=== PATIENT | female | born 1945 | race Caucasian/White ===

== ENCOUNTER 2023-12-21 21:28 | Inpatient (IN) | payer MEDICARE, BC ==
--- NOTE | 2023-12-21 22:13 | ED ---
Skin/Abscess/FB HPI - General Source: patient, family, RN notes reviewed Mode of arrival: wheelchair Limitations: no limitations <Leanna Gandhi - Last Filed: 12/23/23 13:06> <Olvin Fermin - Last Filed: 12/23/23 20:15> - General Chief complaint: Skin/Abscess/Foreign Body Stated complaint: Hernia Time Seen by Provider: 12/21/23 21:49 - History of Present Illness Initial comments: This is a 78-year-old female who presents to the emergency department for concerns of a hernia. States that she been dealing with a hernia in her left groin region for many years and usually pushes it back in multiple times a day. A few days ago she noticed a blood blister over that spot that just broke open. States that after it broke open she noticed that there seemed to be a hole in this area with foul stool smelling drainage. She has not yet seen any surgeons or had the hernia evaluated. The area since opening up is only mildly painful. Denies any fevers or chills. (Leanna Gandhi) - Related Data Home Medications Medication Instructions Recorded Confirmed Aspirin 325 mg PO Q4H PRN 12/22/23 12/22/23 Previous Rx's Medication Instructions Recorded Levofloxacin [Levaquin] 500 mg PO DAILY 10 Days #10 tab 12/23/23 Allergies Allergy/AdvReac Type Severity Reaction Status Date / Time No Known Allergies Allergy Verified 12/22/23 09:36 Review of Systems ROS Other: All systems not noted in ROS Statement are negative. <Leanna Gandhi - Last Filed: 12/23/23 13:06> ROS Other: All systems not noted in ROS Statement are negative. <Olvin Fermin - Last Filed: 12/23/23 20:15> ROS Statement: Those systems with pertinent positive or pertinent negative responses have been documented in the HPI. Past Medical History History of Any Multi-Drug Resistant Organisms: None Reported Past Psychological History: No Psychological Hx Reported Smoking Status: Never smoker Past Alcohol Use History: Occasional Past Drug Use History: None Reported <Leanna Gandhi - Last Filed: 12/23/23 13:06> General Exam Limitations: no limitations General appearance: alert, in no apparent distress Head exam: Present: atraumatic, normocephalic, normal inspection Respiratory exam: Present: normal lung sounds bilaterally. Absent: respiratory distress, wheezes, rales, rhonchi, stridor Cardiovascular Exam: Present: regular rate, normal rhythm, normal heart sounds. Absent: systolic murmur, diastolic murmur, rubs, gallop, clicks GI/Abdominal exam: Present: other (Open hole/defect in the left inguinal region with foul-smelling martinez/green drainage) Neurological exam: Present: alert, oriented X3, CN II-XII intact Psychiatric exam: Present: normal affect, normal mood <Leanna Gandhi - Last Filed: 12/23/23 13:06> Course Vital Signs 12/21/23 12/22/23 21:37 02:06 Temperature 97.9 F Pulse Rate 103 H 85 Respiratory 18 18 Rate Blood Pressure 137/78 128/69 O2 Sat by Pulse 98 98 Oximetry Medical Decision Making - Lab Data Result diagrams: 12/23/23 05:54 12/23/23 05:54 - Radiology Data Radiology results: report reviewed, image reviewed <Leanna Gandhi - Last Filed: 12/23/23 13:06> - Lab Data Result diagrams: 12/23/23 05:54 12/23/23 05:54 <Olvin Fermin - Last Filed: 12/23/23 20:15> - Medical Decision Making This is a 78 year old female who presents to the emergency department for an abdominal opening. Was pt. sent in by a medical professional or institution? @ -No Did you speak to anyone other than the patient for history? @ -No Did you review nursing and triage notes? @ -Yes, and I agree, it is accurate with regards to the patient's symptoms. Were old charts reviewed? @ -No Differential Diagnosis? @ -Enterocutaneous fistula, abscess, cellulitis, injury, this is not meant to be an all-inclusive list. EKG interpreted by me (3pts min.)? @ -Not obtained X-rays interpreted by me (1pt min.)? @ -Not obtained CT interpreted by me (1pt min.)? @ -CT scan of the abdomen and pelvis obtained. My interpretation identifies a large cystic structure in the pelvis. U/S interpreted by me (1pt. min.)? @ -Not obtained What testing was considered but not performed? (CT, X-rays, U/S, labs)? Why? @ -Pelvic ultrasound, however patient refused and did not want the ovarian cystic structure addressed. What meds were considered but not given? Why? @ -None Did you discuss the management of the patient with other professionals? @ -No Did you reconcile home meds? @ -No Was smoking cessation discussed for >3mins.? @ -No Was critical care preformed (if so, how long)? @ -No Were there social determinants of health that impacted care today? How? (Homelessness, low income, unemployed, alcoholism, drug addiction, transportation, low edu. Level, literacy, decrease access to med. care, longterm, rehab)? @ -No Was there de-escalation of care discussed even if they declined? (Discuss DNR or withdrawal of care, Hospice)? @ -No What co-morbidities impacted this encounter? (DM, HTN, Smoking, COPD, CAD, Cancer, CVA, Hep., AIDS, mental health diagnosis, sleep apnea, morbid obesity)? @ -Inguinal hernia Was patient admitted / discharged? @ -Admitted. Lab work demonstrate signs of dehydration and was otherwise unremarkable. There is no leukocytosis or elevated lactic acid. CT scan of the abdomen and pelvis demonstrates a 1.9 cm gas collection in the subcutaneous tissues of the left inguinal crease which extends down to and/or possibly contiguous with the loop of bowel within the left inguinal hernia. It is not clear if this is an abdominal wall abscess or related to an enterocutaneous fistula. The odor of the drainage was fairly potent and reminiscent of stool. She was started on Rocephin and Flagyl empirically. Blood cultures and cultures of the drainage were obtained. CT scan also noted an 18 cm cystic structure in the pelvis concerning for a cystic ovarian mass. This was reviewed with the patient who advised that she does not want this addressed while she is here. States that she is only here to have the opening in her abdomen managed and does not want to have the ovarian cystic structure further looked into at this time. We subsequently avoided a pelvic ultrasound or any consults in this regard due to patient's wishes. Patient admitted to medicine for further evaluation of enterocutaneous fistula versus abdominal wall abscess. Consult placed for general surgery. Patient kept NPO. Case discussed with ED attending Dr. Fermin. Undiagnosed new problem with uncertain prognosis? @ -None Drug Therapy requiring intensive monitoring for toxicity (Heparin, Nitro, Insulin, Cardizem)? @ -None Were any procedures done? @ -None Diagnosis/symptom? 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 @ -Acute Uncomplicated (without systemic symptoms) or Complicated (systemic symptoms)? @ -Uncomplicated Side effects of treatment? @ -None Exacerbation, Progression, or Severe Exacerbation] @ -Not applicable Poses a threat to life or bodily function? @ -Yes, can lead to septic shock and if not treated. (Leanna Gandhi) - Lab Data Lab Results 12/21/23 12/21/23 12/21/23 Range/Units 22:23 22:27 22:27 WBC 9.1 (3.8-10.6) k/uL RBC 3.46 L (3.80-5.40) m/uL Hgb 10.4 L (11.4-16.0) gm/dL Hct 32.6 L (34.0-46.0) % MCV 94.1 (80.0-100.0) fL MCH 30.1 (25.0-35.0) pg MCHC 31.9 (31.0-37.0) g/dL RDW 13.7 (11.5-15.5) % Plt Count 474 H (150-450) k/uL MPV 7.5 Neutrophils % 75 % Lymphocytes % 18 % Monocytes % 4 % Eosinophils % 1 % Basophils % 0 % Neutrophils # 6.8 (1.3-7.7) k/uL Lymphocytes # 1.6 (1.0-4.8) k/uL Monocytes # 0.4 (0-1.0) k/uL Eosinophils # 0.1 (0-0.7) k/uL Basophils # 0.0 (0-0.2) k/uL Hypochromasia Slight PT (10.0-12.5) sec INR (<1.2) APTT (22.0-30.0) sec Sodium 139 (137-145) mmol/L Potassium 3.5 (3.5-5.1) mmol/L Chloride 107 (98-107) mmol/L Carbon Dioxide 20 L (22-30) mmol/L Anion Gap 12 mmol/L BUN 31 H (7-17) mg/dL Creatinine 1.10 H (0.52-1.04) mg/dL Est GFR (CKD-EPI)AfAm 56 (>60 ml/min/1.73 sqM) Est GFR (CKD-EPI)NonAf 49 (>60 ml/min/1.73 sqM) Glucose 100 H (74-99) mg/dL Plasma Lactic Acid Sonny 1.2 (0.7-2.0) mmol/L Calcium 9.6 (8.4-10.2) mg/dL Total Bilirubin 0.4 (0.2-1.3) mg/dL AST 15 (14-36) U/L ALT 11 (4-34) U/L Alkaline Phosphatase 73 (38-126) U/L Total Protein 5.7 L (6.3-8.2) g/dL Albumin 3.1 L (3.5-5.0) g/dL 12/21/23 Range/Units 22:27 WBC (3.8-10.6) k/uL RBC (3.80-5.40) m/uL Hgb (11.4-16.0) gm/dL Hct (34.0-46.0) % MCV (80.0-100.0) fL MCH (25.0-35.0) pg MCHC (31.0-37.0) g/dL RDW (11.5-15.5) % Plt Count (150-450) k/uL MPV Neutrophils % % Lymphocytes % % Monocytes % % Eosinophils % % Basophils % % Neutrophils # (1.3-7.7) k/uL Lymphocytes # (1.0-4.8) k/uL Monocytes # (0-1.0) k/uL Eosinophils # (0-0.7) k/uL Basophils # (0-0.2) k/uL Hypochromasia PT 11.2 (10.0-12.5) sec INR 1.0 (<1.2) APTT 24.3 (22.0-30.0) sec Sodium (137-145) mmol/L Potassium (3.5-5.1) mmol/L Chloride (98-107) mmol/L Carbon Dioxide (22-30) mmol/L Anion Gap mmol/L BUN (7-17) mg/dL Creatinine (0.52-1.04) mg/dL Est GFR (CKD-EPI)AfAm (>60 ml/min/1.73 sqM) Est GFR (CKD-EPI)NonAf (>60 ml/min/1.73 sqM) Glucose (74-99) mg/dL Plasma Lactic Acid Sonny (0.7-2.0) mmol/L Calcium (8.4-10.2) mg/dL Total Bilirubin (0.2-1.3) mg/dL AST (14-36) U/L ALT (4-34) U/L Alkaline Phosphatase (38-126) U/L Total Protein (6.3-8.2) g/dL Albumin (3.5-5.0) g/dL Disposition <Leanna Gandhi - Last Filed: 12/23/23 13:06> <Olvin Fermin - Last Filed: 12/23/23 20:15> Clinical Impression: Left inguinal hernia, Enterocutaneous fistula, Open abdominal wall wound Disposition: ADMITTED IP TO THIS HOSP
[2023-12-21 22:39] LABS: Basophils % (A) 0 %; Eosinophils # (A) 0.1 k/uL (0-0.7); Eosinophils % (A) 1 %; HCT 32.6 % (34.0-46.0); HGB 10.4 gm/dL (11.4-16.0); Hypochromasia Slight; Lymphocytes # (A) 1.6 k/uL (1.0-4.8); Lymphocytes % (A) 18 %; MCH 30.1 pg (25.0-35.0); MCHC 31.9 g/dL (31.0-37.0); MCV 94.1 fL (80.0-100.0); Mean Platelet Volume 7.5; Monocytes # (A) 0.4 k/uL (0-1.0); Monocytes % (A) 4 %; Neutrophils # (A) 6.8 k/uL (1.3-7.7); Neutrophils % (A) 75 %; Platelet Count 474 k/uL (150-450); RBC 3.46 m/uL (3.80-5.40); RDW 13.7 % (11.5-15.5); WBC 9.1 k/uL (3.8-10.6)
[2023-12-21 22:49] LABS: ALT 11 U/L (4-34); AST 15 U/L (14-36); African American GFR (CKD) 56 (>60 ml/min/1.73 sqM); Albumin 3.1 g/dL (3.5-5.0); Alkaline Phosphatase 73 U/L (38-126); Anion Gap 12 mmol/L; Blood Urea Nitrogen 31 mg/dL (7-17); Calcium 9.6 mg/dL (8.4-10.2); Carbon Dioxide 20 mmol/L (22-30); Chloride 107 mmol/L (98-107); Glucose 100 mg/dL (74-99); Non-African American GFR(CKD) 49 (>60 ml/min/1.73 sqM); Potassium 3.5 mmol/L (3.5-5.1); Sodium 139 mmol/L (137-145); Total Bilirubin 0.4 mg/dL (0.2-1.3); Total Protein 5.7 g/dL (6.3-8.2)
[2023-12-21 22:57] LABS: Partial Thromboplastin Time 24.3 sec (22.0-30.0); Prothrombin Time 11.2 sec (10.0-12.5)
[2023-12-21] MEDS: SODIUM CHLORIDE 0.9% 1,000 ML IV STA (22:57)
--- NOTE | 2023-12-21 23:36 | CT ---
EXAM: CT Abdomen and Pelvis Without Intravenous Contrast CLINICAL HISTORY: CT Reason: Hole in left groin TECHNIQUE: Axial computed tomography images of the abdomen and pelvis without intravenous contrast. CTDI is 5.2 mGy and DLP is 328.4 mGy-cm. This CT exam was performed using one or more of the following dose reduction techniques: automated exposure control, adjustment of the mA and/or kV according to patient size, and/or use of iterative reconstruction technique. COMPARISON: No relevant prior studies available. FINDINGS: Lung bases: Small amount of scarring in the left lung base. No consolidation. ABDOMEN: Liver: There are 2.7 and 2.5 cm simple appearing cysts in the liver, superior to the gallbladder fossa. No solid mass lesion is identified. Gallbladder and bile ducts: Unremarkable. No calcified stones. No ductal dilation. Pancreas: Unremarkable. No ductal dilation. Spleen: Unremarkable. No splenomegaly. Adrenals: Unremarkable. No mass. Kidneys and ureters: Kidneys are unremarkable. No hydronephrosis or ureterolithiasis is seen. Stomach and bowel: Unremarkable. No obstruction. No mucosal thickening. PELVIS: Appendix: No findings to suggest acute appendicitis. Bladder: There is a 18.3 x 11 x 10.7 cm cystic structure in the pelvis. There is a second, smaller fluid-filled structure inferior to this which likely represents a decompressed urinary bladder suggesting that this is a large cystic ovarian mass. No stones. Reproductive: See above. ABDOMEN and PELVIS: Intraperitoneal space: Bowel loops are nondilated. There is a moderate amount of stool in the cecum and right colon which is within normal limits measuring 5 cm in diameter. No pneumoperitoneum or free fluid is identified. Bones/joints: Moderate multilevel degenerative changes throughout the spine. No acute fracture or destructive bone lesion is seen. No dislocation. Soft tissues: There is an approximately 1.9 cm gas collection in the subcutaneous tissues of the left inguinal crease which extends down to and or possibly contiguous with the loop of bowel within the left inguinal hernia. Vasculature: The abdominal aorta is mildly calcified and tortuous but nondilated. Lymph nodes: Unremarkable. No enlarged lymph nodes. IMPRESSION: 1. There is a 18.3 x 11 x 10.7 cm cystic structure in the pelvis. There is a second, smaller fluid-filled structure inferior to this which likely represents a decompressed urinary bladder suggesting that this is a large cystic ovarian mass. Characterization is limited without the use of contrast. 2. There is an approximately 1.9 cm gas collection in the subcutaneous tissues of the left inguinal crease which extends down to and or possibly contiguous with the loop of bowel within the left inguinal hernia. Evaluation is limited without the use of either oral or IV contrast. Consider follow-up scan after oral contrast has been administered and seen to reach the colon. 3. Bowel loops are nondilated. There is a moderate amount of stool in the cecum and right colon which is within normal limits measuring 5 cm in diameter. No pneumoperitoneum or free fluid is identified. 4. Kidneys are unremarkable. No hydronephrosis or ureterolithiasis is seen. <MYCVCSECTION> Communications: 12/21/23 23:40 Call Doctor Regarding Above results, called YONI Parisi on 12/20 23:40 (-04:00)
[2023-12-22] MEDS ORDERED: NALOXONE 0.4 MG/ML 1 ML VIAL IV PRN (00:14)
[2023-12-22] MEDS ORDERED: HYDROcodone/APAP 5-325MG 1 EACH TAB PO PRN (00:14)
[2023-12-22] MEDS ORDERED: ACETAMINOPHEN TAB 325 MG TAB PO PRN (00:14)
[2023-12-22] MEDS ORDERED: MORPHINE SULFATE 4 MG/ML SYRINGE IV PRN (00:14)
[2023-12-22] MEDS: metroNIDAZOLE-NS PMX 500 MG in SALINE 1 100ML.BAG IVPB SCH (01:45)
[2023-12-22] MEDS: SODIUM CHLORIDE 0.9% 1,000 ML IV STA (01:47)
[2023-12-22] MEDS: ONDANSETRON 4 MG/2 ML VIAL IVP PRN (10:12)
[2023-12-22] MEDS: IOPAMIDOL CONTRAST (ORAL USE) VIAL PO PRN (10:12)
[2023-12-22] MEDS: PANTOPRAZOLE 40 MG/10 ML VIAL IV SCH (11:00)
--- NOTE | 2023-12-22 12:24 | CT ---
EXAMINATION TYPE: CT abdomen pelvis wo con CT DLP: 296.4 mGycm, Automated exposure control for dose reduction was used. DATE OF EXAM: 12/22/2023 12:04 PM COMPARISON: CT abdomen pelvis 12/21/2023 CLINICAL INDICATION:Female, 78 years old with history of LLQ abdominal pain, possible fistula, draina ge; LLQ abdominal pain, possible fistula, drainage. TECHNIQUE: Standard CT of the abdomen and pelvis following the administration of oral contrast. Cor onal and sagittal reformats were performed. FINDINGS: Limited evaluation due to lack of intravenous contrast and positive intraabdominal fat. LOWER CHEST: Bilateral lower lobe dependent subsegmental atelectasis. Coronary artery calcifications. ABDOMEN LIVER: Redemonstration of a low-density probable cysts in the liver superior to the gallbladder fossa measuring up to 2.7 cm. GALLBLADDER AND BILE DUCTS: Contracted. No gross evidence of biliary duct dilatation. PANCREAS: Grossly unremarkable noncontrast appearance. SPLEEN: Unremarkable noncontrast appearance. ADRENAL GLANDS: Unremarkable noncontrast appearance.. KIDNEYS AND URETERS: No evidence of hydronephrosis or renal calculus. PELVIS BLADDER/REPRODUCTIVE: Redemonstration of a large 16.3 x 11.4 x 11.4 cm (AP, TV, CC dimensions) cystic lesion within the pelvis. No abutting cystic structure along the left anterior aspect measuring up t o 3 cm. Evaluation is significantly limited due to lack of intravenous contrast. Downward movement of large cystic structure inferiorly below the pubococcygeal line. ABDOMEN & PELVIS STOMACH AND BOWEL: Small hiatal hernia, duodenum is unremarkable. Moderate amount stool is present wi thin the right colon. Enteric contrast is reaches the mid small bowel. The appendix is not identified . No evidence of bowel obstruction. PERITONEUM: No evidence of pneumoperitoneum. Small amount of ascites suggested within the right lower quadrant and pelvis. VASCULATURE: Mild atherosclerotic calcifications are present throughout the abdominal aorta and its b ranches. No evidence of aortic aneurysm. Tortuosity of the down the aorta. MUSCULOSKELETAL: No acute osseous abnormalities. Moderate disc degeneration changes are present throu ghout the thoracolumbar spine. S-shaped scoliotic curvature of the visualized thoracolumbar spine. Mi ld retrolisthesis of L3 on L4. Sacral Tarlov cyst suggested. LYMPH NODES: No gross evidence for lymphadenopathy. SOFT TISSUE/ABDOMINAL WALL: Diffuse anasarca. Redemonstration of gaseous foci within the left inguina l crease region. There is suggested left inguinal hernia containing bowel. IMPRESSION: 1. Redemonstration of large cystic structure within the pelvis measuring up to 16.3 cm. This is conc erning for cystic ovarian mass. There has been interval downward displacement of the second cystic st ructure below the pubococcygeal line concerning for possible bladder prolapse versus secondary cystic lesion. Significantly limited examination due to lack of intravenous contrast. 2. Redemonstration of gaseous foci within the subcutaneous tissues of the left inguinal crease. Uncle ar if this is within subcutaneous tissues or within possible bowel within a left inguinal hernia. Ent michelle contrast did not reach this portion of the bowel during exam. [facility], , 12/22/2023 12:22 PM
--- NOTE | 2023-12-22 13:23 | P.HPIM ---
History of Present Illness H&P Date: 12/22/23 Chief Complaint: Drainage left groin 78-year-old female, with no significant past medical history, who presents to the emergency department for concerns of a hernia. States that she been dealing with a hernia in her left groin region for many years and usually pushes it back in multiple times a day. A few days ago she noticed a blood blister over that spot that just broke open. States that after it broke open she noticed that there seemed to be a hole in this area with foul stool smelling drainage. She has not yet seen any surgeons or had the hernia evaluated. The area since opening up is only mildly painful. Denies any fevers or chills. CT scan of the abdomen and pelvis demonstrates a 1.9 cm gas collection in the subcutaneous tissues of the left inguinal crease which extends down to and/or possibly contiguous with the loop of bowel within the left inguinal hernia. It is not clear if this is an abdominal wall abscess or related to an enterocutaneous fistula. The odor of the drainage was fairly potent and reminiscent of stool. She was started on Rocephin and Flagyl empirically. Blood and cultures of the drainage were obtained. CT scan also noted an 18 cm cystic structure in the pelvis concerning for a cystic ovarian mass. This was reviewed with the patient who advised that she does not want this addressed while she is here. States that she is only here to have the opening in her abdomen managed and does not want to have the ovarian cystic structure further looked into at this time. Blood work completed in ED reveals a WBC of 9.1, hemoglobin of 10.4 and platelet count of 474, sodium 139, potassium 3.5, BUN 1.2 Review of Systems REVIEW OF SYSTEMS: CONSTITUTIONAL: No fever, no malaise, no fatigue. HEENT: No recent visual problems or hearing problems. Denied any sore throat. CARDIOVASCULAR: No chest pain, orthopnea, PND, no palpitations, no syncope. PULMONARY: No shortness of breath, no cough, no hemoptysis. GASTROINTESTINAL: No diarrhea, no nausea, no vomiting, no abdominal pain. NEUROLOGICAL: No headaches, no weakness, no numbness. HEMATOLOGICAL: Denies any bleeding or petechiae. GENITOURINARY: Denies any burning micturition, frequency, or urgency. MUSCULOSKELETAL/RHEUMATOLOGICAL: Denies any joint pain, swelling, or any muscle pain. ENDOCRINE: Denies any polyuria or polydipsia. The rest of the 14-point review of systems is negative. Past Medical History Past Medical History: No Reported History History of Any Multi-Drug Resistant Organisms: None Reported Past Surgical History: No Surgical Hx Reported Past Psychological History: No Psychological Hx Reported Smoking Status: Never smoker Past Alcohol Use History: Occasional Past Drug Use History: None Reported Medications and Allergies Home Medications Medication Instructions Recorded Confirmed Type Aspirin 325 mg PO Q4H PRN 12/22/23 12/22/23 History Allergies Allergy/AdvReac Type Severity Reaction Status Date / Time No Known Allergies Allergy Verified 12/22/23 09:36 Physical Exam Vitals: Vital Signs Temp Pulse Pulse Pulse Resp BP BP 12/22/23 08:45 98.6 F 82 14 105/70 12/22/23 03:06 99.1 F 101 H 18 106/70 12/22/23 02:06 85 18 128/69 12/21/23 21:37 97.9 F 103 H 18 137/78 Pulse Ox 12/22/23 08:45 97 12/22/23 03:06 12/22/23 02:06 98 12/21/23 21:37 98 Intake and Output 12/21/23 12/22/23 12/22/23 22:59 06:59 14:59 Other: Voiding Method Toilet Weight 47.627 kg 47.627 kg General appearance: alert, in no apparent distress Head exam: Present: atraumatic, normocephalic, normal inspection Respiratory exam: Present: normal lung sounds bilaterally. Absent: respiratory distress, wheezes, rales, rhonchi, stridor Cardiovascular Exam: Present: regular rate, normal rhythm, normal heart sounds. Absent: systolic murmur, diastolic murmur, rubs, gallop, clicks GI/Abdominal exam: Present: other (Open hole/defect in the left inguinal region with foul-smelling martinez/green drainage) Neurological exam: Present: alert, oriented X3, CN II-XII intact Psychiatric exam: Present: normal affect, normal mood Results CBC & Chem 7: 12/21/23 22:27 12/21/23 22:27 Labs: Abnormal Lab Results - Last 24 Hours (Table) 12/21/23 12/21/23 Range/Units 22:27 22:27 RBC 3.46 L (3.80-5.40) m/uL Hgb 10.4 L (11.4-16.0) gm/dL Hct 32.6 L (34.0-46.0) % Plt Count 474 H (150-450) k/uL Carbon Dioxide 20 L (22-30) mmol/L BUN 31 H (7-17) mg/dL Creatinine 1.10 H (0.52-1.04) mg/dL Glucose 100 H (74-99) mg/dL Total Protein 5.7 L (6.3-8.2) g/dL Albumin 3.1 L (3.5-5.0) g/dL Thrombosis Risk Factor Assmnt - Choose All That Apply Any of the Below Risk Factors Present?: No Other Risk Factors: No Other congenital or acquired thrombophilia - If yes, enter type in comment: No Thrombosis Risk Factor Assessment Level: Very Low Risk Assessment and Plan Assessment: 1. Left inguinal drainage; enterocutaneous fistula versus abdominal wall wound/abscess CT scan of the abdomen and pelvis demonstrates a 1.9 cm gas collection in the subcutaneous tissues of the left inguinal crease which extends down to and/or possibly contiguous with the loop of bowel within the left inguinal hernia. It is not clear if this is an abdominal wall abscess or related to an enterocutaneous fistula. --Patient has been placed on IV Rocephin and Flagyl; wound cultures and blood cultures have been obtained -- Consult ID and general surgery for further recommendations 2. Cystic ovarian mass; --CT scan reveals 18 cm cystic structure in the pelvis concerning for a cystic ovarian mass. This was reviewed with the patient; she does not want this addressed while she is here. States that she is only here to have the opening in her abdomen managed and does not want to have the ovarian cystic structure further looked into at this time. We subsequently avoided a pelvic ultrasound or any consults in this regard due to patient's wishes. 3. Acute renal injury/dehydration; BUNs/creatinine elevated at /.5 -Patient has been placed on IV fluids; we will monitor strict BEVERLY's, daily weights, renal function electrolytes; avoid nephrotoxins and hypotension 4. Anemia; not clear if it is chronic; we will monitor stool occult blood, H&H, iron profile; start patient on Protonix 40 g daily 5. Left inguinal hernia; general surgery has been consulted DVT prophylaxis; SCDs CODE STATUS; full code
--- NOTE | 2023-12-22 15:12 | P.GSCN ---
History of Present Illness Consult date: 12/22/23 History of present illness: CHIEF COMPLAINT: Drainage from left groin and concerns for hernia HISTORY OF PRESENT ILLNESS: This is a 78-year-old female who presented to the hospital with a history of a left groin hernia for several years. Patient reports that the area blistered 2 days ago and skin became black and then broke open and now is having foul smelling drainage. Patient does report pain in that left groin. Her initial CT scan was without contrast that reported approximately 1.9 cm of gas collection in the subcutaneous tissue of the left inguinal crease which extends down to and possibly contiguous with the loop of bowel within the left inguinal hernia. It is limited study due to no contrast. It also reported a 18.3 x 11 x 10.7 cystic structure in the pelvis. Suggesting a cystic ovarian mass. Patient had apparently declined to be evaluated by [facility] service during this admission. Patient seen and examined with Dr. Hidalgo PAST MEDICAL HISTORY: See below PAST SURGICAL HISTORY: See below MEDICATIONS: See below ALLERGIES: See below SOCIAL HISTORY: No illicit drug use. REVIEW OF SYSTEMS: CONSTITUTIONAL: Denies fever or chills. HEENT: Denies blurred vision, vision changes, or eye pain. Denies hemoptysis CARDIOVASCULAR: Denies chest pain or pressure. RESPIRATORY: No shortness of breath. GASTROINTESTINAL: See HPI for pertinent findings HEMATOLOGIC: Denies bleeding disorders. GENITOURINARY: Denies any blood in urine or increased urinary frequency. SKIN: Denies pruitis. Denies rash. PHYSICAL EXAM: VITAL SIGNS: Reviewed GENERAL: Well-developed in no acute distress. HEENT: No sclera icterus. Extraocular movements grossly intact. Moist buccal mucosa. Head is atraumatic, normocephalic. No nasal drainage. ABDOMEN: Soft. Nondistended. Left groin necrotic skin that opens with a hole and foul-smelling drainage. skin around the necrotic area is irritated tender with palpation. NEUROLOGIC: Alert and oriented. Cranial nerves II through XII grossly intact. LABORATORY DATA: WBC 9.1 Hgb 10.4 platelets 474 Sodium 139 potassium 3.5 creatinine 1.10 IMAGING: CT scan abdomen pelvis as stated above ASSESSMENT: 1. Left inguinal hernia with necrotic skin. Per Dr. Hidalgo 2. Possible cystic ovarian mass noted on CT PLAN: -CT scan of abdomen pelvis with oral contrast ordered for further evaluation of the left groin -Further recommendations forthcoming per surgeon -Continue supportive care -Continue antibiotics -Attempted to remove necrotic tissue at bedside per surgeon request. Patient had pain. No further attempts made. Area was bandaged. Physician Marzipan Maker note has been reviewed by physician. Signing provider agrees with the documented findings, assessment, and plan of care. Past Medical History Past Medical History: No Reported History History of Any Multi-Drug Resistant Organisms: None Reported Past Surgical History: No Surgical Hx Reported Past Psychological History: No Psychological Hx Reported Smoking Status: Never smoker Past Alcohol Use History: Occasional Past Drug Use History: None Reported Medications and Allergies Home Medications Medication Instructions Recorded Confirmed Type Aspirin 325 mg PO Q4H PRN 12/22/23 12/22/23 History Allergies Allergy/AdvReac Type Severity Reaction Status Date / Time No Known Allergies Allergy Verified 12/22/23 09:36 Surgical - Exam Vital Signs Temp Pulse Resp BP Pulse Ox 97.9 F 103 H 18 137/78 98 12/21/23 21:37 12/21/23 21:37 12/21/23 21:37 12/21/23 21:37 12/21/23 21:37 Results - Labs 12/21/23 22:27 12/21/23 22:27 Abnormal Lab Results - Last 24 Hours (Table) 12/21/23 12/21/23 Range/Units 22:27 22:27 RBC 3.46 L (3.80-5.40) m/uL Hgb 10.4 L (11.4-16.0) gm/dL Hct 32.6 L (34.0-46.0) % Plt Count 474 H (150-450) k/uL Carbon Dioxide 20 L (22-30) mmol/L BUN 31 H (7-17) mg/dL Creatinine 1.10 H (0.52-1.04) mg/dL Glucose 100 H (74-99) mg/dL Total Protein 5.7 L (6.3-8.2) g/dL Albumin 3.1 L (3.5-5.0) g/dL Diabetes panel 12/21/23 Range/Units 22:27 Sodium 139 (137-145) mmol/L Potassium 3.5 (3.5-5.1) mmol/L Chloride 107 (98-107) mmol/L Carbon Dioxide 20 L (22-30) mmol/L BUN 31 H (7-17) mg/dL Creatinine 1.10 H (0.52-1.04) mg/dL Glucose 100 H (74-99) mg/dL Calcium 9.6 (8.4-10.2) mg/dL AST 15 (14-36) U/L ALT 11 (4-34) U/L Alkaline Phosphatase 73 (38-126) U/L Total Protein 5.7 L (6.3-8.2) g/dL Albumin 3.1 L (3.5-5.0) g/dL Calcium panel 12/21/23 Range/Units 22:27 Calcium 9.6 (8.4-10.2) mg/dL Albumin 3.1 L (3.5-5.0) g/dL Pituitary panel 12/21/23 Range/Units 22:27 Sodium 139 (137-145) mmol/L Potassium 3.5 (3.5-5.1) mmol/L Chloride 107 (98-107) mmol/L Carbon Dioxide 20 L (22-30) mmol/L BUN 31 H (7-17) mg/dL Creatinine 1.10 H (0.52-1.04) mg/dL Glucose 100 H (74-99) mg/dL Calcium 9.6 (8.4-10.2) mg/dL Adrenal panel 12/21/23 Range/Units 22:27 Sodium 139 (137-145) mmol/L Potassium 3.5 (3.5-5.1) mmol/L Chloride 107 (98-107) mmol/L Carbon Dioxide 20 L (22-30) mmol/L BUN 31 H (7-17) mg/dL Creatinine 1.10 H (0.52-1.04) mg/dL Glucose 100 H (74-99) mg/dL Calcium 9.6 (8.4-10.2) mg/dL Total Bilirubin 0.4 (0.2-1.3) mg/dL AST 15 (14-36) U/L ALT 11 (4-34) U/L Alkaline Phosphatase 73 (38-126) U/L Total Protein 5.7 L (6.3-8.2) g/dL Albumin 3.1 L (3.5-5.0) g/dL
--- NOTE | 2023-12-23 09:39 | P.PN ---
Subjective Progress Note Date: 12/23/23 Patient states he feels well. She is adamant about going home today. She feels she can take care of her inguinal wound herself. On exam vital signs appear stable. Abdomen is soft. CT scan of the abdomen shows evidence of a left inguinal hernia. There is no sign of obstruction. Patient also has a large cystic ovarian mass. Patient is stable for discharge home. She will follow-up myself in the office next week. Will plan for debridement of her left groin next week. Objective - Vital Signs Vital signs: Vital Signs Temp 98.1 F 12/23/23 07:38 Pulse 67 12/23/23 07:38 Resp 16 12/23/23 07:38 BP 97/60 12/23/23 07:38 Pulse Ox 93 L 12/23/23 07:38 FiO2 Intake & Output 12/22/23 12/23/23 12/23/23 18:59 06:59 18:59 Intake Total 240 237 Balance 240 237 Intake: Oral 240 237 Other: Voiding Method Toilet Toilet - Labs CBC & Chem 7: 12/21/23 22:27 12/21/23 22:27 Labs: Microbiology - Last 24 Hours (Table) 12/22/23 00:04 Gram Stain - Preliminary Groin
[2023-12-23 09:55] LABS: HCT 29.2 % (37.2-46.3); HGB 9.2 g/dL (12.0-15.0); MCH 29.4 pg (27.0-32.0); MCHC 31.5 g/dL (32.0-37.0); MCV 93.3 FL (80.0-97.0); Mean Platelet Volume 9.7 FL (9.5-12.2); NRBC Per 100 WBC 0 X 10*3/uL (0.00-0.01); Platelet Count 346 X 10*3/uL (140-440); RBC 3.13 X 10*6/uL (4.10-5.20); RDW 14.6 % (11.5-14.5); WBC 5.43 X 10*3/uL (4.50-10.00)
--- NOTE | 2023-12-23 10:09 | P.PN ---
Subjective Progress Note Date: 12/22/23 Patient seen and evaluated at bedside. Denies pain, admits to malodor. Objective - Vital Signs Vital signs: Vital Signs Temp 98.1 F 12/23/23 07:38 Pulse 67 12/23/23 07:38 Resp 16 12/23/23 07:38 BP 97/60 12/23/23 07:38 Pulse Ox 93 L 12/23/23 07:38 FiO2 Intake & Output 12/22/23 12/23/23 12/23/23 18:59 06:59 18:59 Intake Total 240 237 Balance 240 237 Intake: Oral 240 237 Other: Voiding Method Toilet Toilet - Labs CBC & Chem 7: 12/23/23 05:54 12/21/23 22:27 Labs: Abnormal Lab Results - Last 24 Hours (Table) 12/23/23 Range/Units 05:54 RBC 3.13 L (4.10-5.20) X 10*6/uL Hgb 9.2 L (12.0-15.0) g/dL Hct 29.2 L (37.2-46.3) % MCHC 31.5 L (32.0-37.0) g/dL RDW 14.6 H (11.5-14.5) % Microbiology - Last 24 Hours (Table) 12/22/23 00:04 Gram Stain - Preliminary Groin Assessment and Plan Assessment: 78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
[2023-12-23 11:16] LABS: Blood Urea Nitrogen 22.4 mg/dL (9.0-27.0); Calcium 8.2 mg/dL (8.7-10.3); Carbon Dioxide 18.8 mmol/L (21.6-31.8); Chloride 112 mmol/L (96-109); Glucose 80 mg/dL (70-110); Potassium 3.3 mmol/L (3.5-5.5); Sodium 143 mmol/L (135-145)
[2023-12-23 11:37] LABS: Basophils # (A) 0.04 X 10*3/uL (0.00-0.10); Basophils % (A) 0.7 %; Eosinophils # (A) 0.09 X 10*3/uL (0.04-0.35); Eosinophils % (A) 1.7 %; Lymphocytes # (A) 1.44 X 10*3/uL (0.90-5.00); Lymphocytes % (A) 26.5 %; Monocytes # (A) 0.48 X 10*3/uL (0.20-1.00); Monocytes % (A) 8.8 %; Neutrophils # (A) 3.34 X 10*3/uL (1.80-7.70); Neutrophils % (A) 61.6 %
[2023-12-23] MEDS: POTASSIUM CHLORIDE ER 10 MEQ TAB.ER.PRT PO STA (13:08)
[2023-12-23 13:50] VITALS: BP 146/81; PULSE 75; RESP 20; TEMP 97.6
== END 2023-12-23 14:49 | disposition home or self-care (01) | DRG 394 ==
LOC: EC 21:28 → 5NMEDONC 12-22 00:51
PROVIDERS: ADMIT Internal Medicine; ATTEND Internal Medicine
DX: K63.2 Fistula of intestine (principal); N17.9 Acute kidney failure, unspecified; K40.90 Unilateral inguinal hernia, without obstruction or gangrene, not specified as recurrent; N83.209 Unspecified ovarian cyst, unspecified side; Z53.29 Procedure and treatment not carried out because of patient's decision for other reasons; E86.0 Dehydration; D64.9 Anemia, unspecified; Z28.310 Unvaccinated for COVID-19; Z79.82 Long term (current) use of aspirin
CPT/HCPCS: 36415; 74176; 80048; 80053; 82272; 83605; 84145; 85025; 85610; 85730; 86140; 87040; 87070; 87075; 87077; 87186; 87205; 96361; 96365; 96375; 99285

== ENCOUNTER 2024-09-12 19:00 | Inpatient (IN) | payer MEDICARE, BC ==
[2024-09-12] MEDS: SODIUM CHLORIDE 0.9% 1,000 ML IV ONE (20:02)
[2024-09-12] MEDS: PANTOPRAZOLE 40 MG/10 ML VIAL IVP STA (20:03)
[2024-09-12] MEDS: ONDANSETRON 4 MG/2 ML VIAL IVP STA (20:03)
[2024-09-12 20:13] LABS: ALT 6 U/L (4-34); AST 19 U/L (14-36); African American GFR (CKD) 64 (>60 ml/min/1.73 sqM); Albumin 2.8 g/dL (3.5-5.0); Alkaline Phosphatase 77 U/L (38-126); Amylase 48 U/L (30-110); Anion Gap 6 mmol/L; Blood Urea Nitrogen 24 mg/dL (7-17); Calcium 10.2 mg/dL (8.4-10.2); Carbon Dioxide 22 mmol/L (22-30); Chloride 107 mmol/L (98-107); Glucose 104 mg/dL (74-99); Lipase 151 U/L (23-300); Non-African American GFR(CKD) 56 (>60 ml/min/1.73 sqM); Potassium 3.7 mmol/L (3.5-5.1); Sodium 135 mmol/L (137-145); Total Bilirubin 0.4 mg/dL (0.2-1.3); Total Protein 5.1 g/dL (6.3-8.2)
[2024-09-12 20:26] LABS: INR 1.3 (<1.2); Prothrombin Time 13.8 sec (10.0-12.5)
[2024-09-12 20:31] LABS: Partial Thromboplastin Time 20.7 sec (22.0-30.0)
[2024-09-12 21:23] LABS: Basophils # (A) 0.01 10*3/uL (0.00-0.10); Basophils % (A) 0.2 %; Eosinophils # (A) 0.02 10*3/uL (0.04-0.35); Eosinophils % (A) 0.3 %; Lymphocytes # (A) 1.86 10*3/uL (0.90-5.00); Lymphocytes % (A) 28.7 %; MCH 15.9 pg (27.0-32.0); MCHC 25.5 g/dL (32.0-37.0); MCV 62.3 fL (80.0-97.0); Mean Platelet Volume 9.7 fL (9.5-12.2); Monocytes # (A) 0.56 10*3/uL (0.20-1.00); Monocytes % (A) 8.6 %; Neutrophils # (A) 3.97 10*3/uL (1.80-7.70); Neutrophils % (A) 61.1 %; Platelet Count 156 10*3/uL (140-440); RDW 20.3 % (11.5-14.5); WBC 6.49 10*3/uL (4.50-10.00)
[2024-09-12 21:29] LABS: HCT 13.7 % (37.2-46.3); HGB 3.5 g/dL (12.0-15.0)
--- NOTE | 2024-09-12 22:03 | CT ---
EXAMINATION TYPE: CT abdomen pelvis w con CT DLP: 504.1 mGycm, Automated exposure control for dose reduction was used. DATE OF EXAM: 09/12/2024 9:31 PM COMPARISON: CT abdomen pelvis 12/22/2023, 12/21/2023 CLINICAL INDICATION:Female, 78 years old with history of abdominal pain, generalized; generalized abd ominal pain TECHNIQUE: Standard CT of the abdomen and pelvis following the administration of 100 cc of Isovue 3 00 IV contrast material. Coronal and sagittal reformats were performed. FINDINGS: LOWER CHEST: Small bilateral pleural effusions with associated atelectasis. Mild cardiomegaly. Mitral annulus calcifications. ABDOMEN LIVER: Multiple hypodense similar cysts within the liver. GALLBLADDER AND BILE DUCTS: Unremarkable. PANCREAS: Unremarkable. SPLEEN: Unremarkable. ADRENAL GLANDS: Unremarkable. KIDNEYS AND URETERS: No evidence of hydronephrosis or renal calculus. The kidneys enhance symmetrical ly. Couple of subcentimeter left renal cysts bilaterally. No follow-up recommended. PELVIS BLADDER: Unremarkable REPRODUCTIVE: Redemonstration of large cystic mass originating in the pelvis and extending superiorly to the L2 vertebral body. This grossly measures 12.7 x 21.1 x 18.6 cm in AP, TV, CC dimensions. Ther e are couple of thin septations identified. No distinct enhancing mural nodularity identified. Anteve rted uterus with the fundus extending to the right adnexa due to displacement from the pelvic mass. P reviously seen suspected bladder prolapse has resolved. ABDOMEN & PELVIS STOMACH AND BOWEL: Small hiatal hernia, duodenum is unremarkable. No focal bowel wall thickening or s urrounding inflammatory changes. There is displacement of the bowel due to large pelvic mass. No evid ence of bowel obstruction. PERITONEUM: No evidence of pneumoperitoneum. Small to moderate volume ascites throughout the abdomen or pelvis. VASCULATURE: Mild atherosclerotic calcifications are present throughout the abdominal aorta and its b ranches. Tortuosity of the abdominal aorta. No evidence of aortic aneurysm. MUSCULOSKELETAL: No acute osseous abnormalities. No aggressive osseous lesion. Mild to moderate multi level degenerative disc disease. S-shaped scoliotic curvature of the thoracolumbar spine. LYMPH NODES: No gross evidence for lymphadenopathy. SOFT TISSUE/ABDOMINAL WALL: Diffuse anasarca. IMPRESSION: 1. Increasing size of large cystic structure with thin septations originating in the pelvis and exte nding into the lower abdomen. 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 No distinct enhancing m ural nodularity identified. This creates mass effect upon the surrounding structures. No adenopathy i dentified. Gynecological consultation is recommended. 2. Resolution of previously demonstrated urinary bladder prolapse from prior exam. 3. Small to moderate ascites throughout the abdomen and pelvis. 4. Small bilateral pleural effusions with associated atelectasis. [facility], , 09/12/2024 10:00 PM
[2024-09-12] MEDS ORDERED: ONDANSETRON 4 MG/2 ML VIAL IVP PRN (23:25)
[2024-09-12] MEDS ORDERED: NALOXONE 0.4 MG/ML 1 ML VIAL IV PRN (23:25)
--- NOTE | 2024-09-12 23:25 | ED ---
General Adult HPI - General Chief complaint: Abdominal Pain Stated complaint: Abd pain Time Seen by Provider: 09/12/24 19:25 Source: patient, EMS, RN notes reviewed, old records reviewed Mode of arrival: EMS - History of Present Illness Initial comments: Patient is a 78-year-old female presents emergency department complaining of abdominal pain. States she has been having abdominal discomfort for a few days but also has been having chronic abdominal pain for weeks to months as well as weakness that is progressively gotten worse over that period of time. Denies a ny bright red blood per rectum or in emesis. Denies any significant constipation or diarrhea. States the pain is worse when she eats. States she feels like she gets bloated. Denies any dark tarry stools. Is not on blood thinners. Has a history of a groin abscess that is since improved. Presents for further evaluation at this time. - Related Data Home Medications Medication Instructions Recorded Confirmed Aspirin 325 mg PO Q4H PRN 12/22/23 12/22/23 Previous Rx's Medication Instructions Recorded Levofloxacin [Levaquin] 500 mg PO DAILY 10 Days #10 tab 12/23/23 Allergies Allergy/AdvReac Type Severity Reaction Status Date / Time No Known Allergies Allergy Verified 09/12/24 19:16 Review of Systems ROS Statement: Those systems with pertinent positive or pertinent negative responses have been documented in the HPI. Review of Systems: CONST: Denies fever EYES: Denies blurry vision ENT: Denies nasal congestion C/V: Denies Chest pain RESP: Denies shortness of breath GI: Endorses intermittent abdominal pain : Denies dysuria SKIN: Denies rash. MSK: Denies joint pain. NEURO: Versus weakness ROS Other: All systems not noted in ROS Statement are negative. Past Medical History Past Medical History: No Reported History Additional Past Medical History / Comment(s): Abcess to the groin History of Any Multi-Drug Resistant Organisms: None Reported Past Surgical History: No Surgical Hx Reported Past Psychological History: No Psychological Hx Reported Smoking Status: Never smoker Past Alcohol Use History: Occasional Past Drug Use History: None Reported General Exam - General Exam Comments Initial Comments: General: Appears in no acute distress. HEAD: Normal with no signs of head trauma. EYES: PERRLA, EOMI, conjunctiva normal, no discharge. ENT: Hearing grossly intact, normal oropharynx. RESPIRATORY: Clear breath sounds bilaterally. No wheezes, rales, or rhonchi. C/V: Regular rate and rhythm. S1 and S2 auscultated, no edema, peripheral pulses 2+ and intact throughout ABD: Abdomen is mildly distended. Nontender focally. No guarding or rebound tenderness. No peritoneal signs. EXT: Normal range of motion, no obvious deformity SKIN: No rashes or lesions observed on exposed skin. NEURO: Alert and oriented x 4. Course Vital Signs 09/12/24 19:07 Temperature 98.4 F Pulse Rate 114 H Respiratory 18 Rate Blood Pressure 114/72 O2 Sat by Pulse 96 Oximetry Procedures - [place] Protocol (Time Out) Nurse: Jacky Harrell Medical Decision Making - Medical Decision Making Was pt. sent in by a medical professional or institution (YONI Dalton, [employer], urgent care, hospital, or snf...) When possible be specific @ -No Did you speak to anyone other than the patient for history (EMS, parent, family, police, friend...)? What history was obtained from this source @ -No Did you review nursing and triage notes (agree or disagree)? Why? @ -I reviewed and agree with nursing and triage notes Were old charts reviewed (outside hosp., previous admission, EMS record, old EKG, old radiological studies, urgent care reports/EKG's, snf records)? Report findings @ -No old charts were reviewed Differential Diagnosis (chest pain, altered mental status, abdominal pain women, abdominal pain men, vaginal bleeding, weakness, fever, dyspnea, syncope, head ache, dizziness, GI bleed, back pain, seizure, CVA, palpatations, mental health, musculoskeletal)? @ -Differential Abdominal Pain Women: Appendicitis, Cholecystitis, diverticulosis, ischemic bowel, pancreatitis, hepatitis, UTI, gastroenteritis, AAA, incarcerated hernia, bowel obstruction, constipation, inflammatory bowel, hepatitis, peptic ulcer disease, splenic infarction, perforated viscus, vulvitis, ovarian torsion, PID, kidney stone, placenta abruption, this is not meant to be an all-inclusive list EKG interpreted by me (3pts min.). @ -As above X-rays interpreted by me (1pt min.). @ -None done CT interpreted by me (1pt min.). @ -CT abdomen pelvis reveals a large cystic structure in the pelvis concerning for ovarian neoplasm with localized mass effect. U/S interpreted by me (1pt. min.). @ -None done What testing was considered but not performed or refused? (CT, X-rays, U/S, lab s)? Why? @ -None What meds were considered but not given or refused? Why? @ -None Did you discuss the management of the patient with other professionals (professionals i.e. Dr., PA, [employer], lab, RT, psych nurse, rn social services, soda dispenser, teacher, weapons officer naval activity, manager of case management)? Give summary @ - I initially discussed the case with Dr. Valdivia who is on-call for surgery the patient does follow-up with Dr. Rocky monroe contact and was in agreement the plan for the patient remain here. I spoke with the admitting provider, Dr. Lara who accepted the admission. Was smoking cessation discussed for >3mins.? @ -No Was critical care preformed (if so, how long)? @ -Yes, 31 minutes Were there social determinants of health that impacted care today? How? (Homelessness, low income, unemployed, alcoholism, drug addiction, transportation, low edu. Level, literacy, decrease access to med. care, skilled nursing, rehab)? @ -No Was there de-escalation of care discussed even if they declined (Discuss DNR or withdrawal of care, Hospice)? DNR status @ -No What co-morbidities impacted this encounter? (DM, HTN, Smoking, COPD, CAD, Cancer, CVA, ARF, Chemo, Hep., AIDS, mental health diagnosis, sleep apnea, morbid obesity)? @ -None Was patient admitted / discharged? Hospital course, mention meds given and route, prescriptions, significant lab abnormalities, going to OR and other pertinent info. @ -Based on patient's presentation and physical exam, presents emergency department for weakness, abdominal pain that his been ongoing for weeks to months. Slightly worsening abdominal discomfort over the last few days. Vitals within acceptable limits. Is not on blood thinners. No evidence of GI bleeding. We will obtain abdominal workup. She was in agreement this plan. She is given IV fluids as well as Zofran and Protonix. EKG unremarkable. Laboratory studies remarkable for microcytic anemia with hemoglobin 3.5. I suspect this to be anemia of chronic disease. Remainder the labs unremarkable. CT reveals a large ovarian cystic structure concerning for neoplasm. I discussed results with patient. She is familiar with the cyst being present. I discussed I do suspect her anemia is likely anemia of chronic disease because of this as she does have microcytic anemia. She was in agreement with this that she has no evidence of GI bleeding. I initially discussed the case with Dr. Valdivia who is on-call for surgery the patient does follow-up with Dr. Rocky monroe contact and was in agreement the plan for the patient remain here. I spoke with the admitting provider, Dr. Lara who accepted the admission. Consult placed to oncology. Patient had 2 units of packed red blood cells ordered for transfusion. Undiagnosed new problem with uncertain prognosis? @ -No Drug Therapy requiring intensive monitoring for toxicity (Heparin, Nitro, Insulin, Cardizem)? @ -No Were any procedures done? @ -No Diagnosis/symptom? @ -Symptomatic anemia, ovarian mass Acute, or Chronic, or Acute on Chronic? @ -Acute on chronic Uncomplicated (without systemic symptoms) or Complicated (systemic symptoms)? @ -Complicated Side effects of treatment? @ -No Exacerbation, Progression, or Severe Exacerbation? @ -No Poses a threat to life or bodily function? How? (Chest pain, [place], [place], pneumonia, PE, COPD, DKA, ARF, appy, cholecystitis, CVA, Diverticulitis, Homicidal, Suicidal, threat to staff... and all critical care pts) @ -Yes - Lab Data Result diagrams: 09/12/24 21:08 09/12/24 19:49 Lab Results 09/12/24 09/12/24 09/12/24 Range/Units 19:49 19:49 19:49 WBC (4.50-10.00) 10*3/uL RBC (4.10-5.20) 10*6/uL Hgb (12.0-15.0) g/dL Hct (37.2-46.3) % MCV (80.0-97.0) fL MCH (27.0-32.0) pg MCHC (32.0-37.0) g/dL Plt Count (140-440) 10*3/uL MPV (9.5-12.2) fL Immature Gran % (Auto) % Neutrophils % % Lymphocytes % % Monocytes % % Eosinophils % % Basophils % % Immature Gran # (0.00-0.04) 10*3/uL Neutrophils # (1.80-7.70) 10*3/uL Lymphocytes # (0.90-5.00) 10*3/uL Monocytes # (0.20-1.00) 10*3/uL Eosinophils # (0.04-0.35) 10*3/uL Basophils # (0.00-0.10) 10*3/uL PT 13.8 H (10.0-12.5) sec INR 1.3 H (<1.2) APTT 20.7 L (22.0-30.0) sec Sodium 135 L (137-145) mmol/L Potassium 3.7 (3.5-5.1) mmol/L Chloride 107 (98-107) mmol/L Carbon Dioxide 22 (22-30) mmol/L Anion Gap 6 mmol/L BUN 24 H (7-17) mg/dL Creatinine 0.98 (0.52-1.04) mg/dL Est GFR (CKD-EPI)AfAm 64 (>60 ml/min/1.73 sqM) Est GFR (CKD-EPI)NonAf 56 (>60 ml/min/1.73 sqM) Glucose 104 H (74-99) mg/dL Plasma Lactic Acid Sonny 1.4 (0.7-2.0) mmol/L Calcium 10.2 (8.4-10.2) mg/dL Total Bilirubin 0.4 (0.2-1.3) mg/dL AST 19 (14-36) U/L ALT 6 (4-34) U/L Alkaline Phosphatase 77 (38-126) U/L Total Protein 5.1 L (6.3-8.2) g/dL Albumin 2.8 L (3.5-5.0) g/dL Amylase 48 (30-110) U/L Lipase 151 (23-300) U/L Blood Type Recheck Bld Type Recheck Status Spec Expiration Date 09/12/24 09/12/24 Range/Units 21:08 22:38 WBC 6.49 (4.50-10.00) 10*3/uL RBC 2.20 L (4.10-5.20) 10*6/uL Hgb 3.5 L* (12.0-15.0) g/dL Hct 13.7 L* (37.2-46.3) % MCV 62.3 L (80.0-97.0) fL MCH 15.9 L (27.0-32.0) pg MCHC 25.5 L (32.0-37.0) g/dL Plt Count 156 (140-440) 10*3/uL MPV 9.7 (9.5-12.2) fL Immature Gran % (Auto) 1.1 % Neutrophils % 61.1 % Lymphocytes % 28.7 % Monocytes % 8.6 % Eosinophils % 0.3 % Basophils % 0.2 % Immature Gran # 0.07 H (0.00-0.04) 10*3/uL Neutrophils # 3.97 (1.80-7.70) 10*3/uL Lymphocytes # 1.86 (0.90-5.00) 10*3/uL Monocytes # 0.56 (0.20-1.00) 10*3/uL Eosinophils # 0.02 L (0.04-0.35) 10*3/uL Basophils # 0.01 (0.00-0.10) 10*3/uL PT (10.0-12.5) sec INR (<1.2) APTT (22.0-30.0) sec Sodium (137-145) mmol/L Potassium (3.5-5.1) mmol/L Chloride (98-107) mmol/L Carbon Dioxide (22-30) mmol/L Anion Gap mmol/L BUN (7-17) mg/dL Creatinine (0.52-1.04) mg/dL Est GFR (CKD-EPI)AfAm (>60 ml/min/1.73 sqM) Est GFR (CKD-EPI)NonAf (>60 ml/min/1.73 sqM) Glucose (74-99) mg/dL Plasma Lactic Acid Sonny (0.7-2.0) mmol/L Calcium (8.4-10.2) mg/dL Total Bilirubin (0.2-1.3) mg/dL AST (14-36) U/L ALT (4-34) U/L Alkaline Phosphatase (38-126) U/L Total Protein (6.3-8.2) g/dL Albumin (3.5-5.0) g/dL Amylase (30-110) U/L Lipase (23-300) U/L Blood Type Recheck No Previous Record Bld Type Recheck Status CABO Indicated Spec Expiration Date 09/15/20242337 - EKG Data -: EKG Interpreted by Me EKG Comments: 12-lead Electrocardiogram Interpretation Note EKG was reviewed and interpreted by myself. 12-lead ECG performed at 1943 is interpreted by me as revealing normal sinus rhythm at a rate of 99 beats per minute. [place] is normal. [place] interval is 159 ms, QRS duration 76 ms, QTc is 294 ms.. There were no ST or T wave abnormalities to suggest myocardial ischemia or injury. R wave progression across the precordium was satisfactory. By my interpretation this EKG is non-diagnostic for acute ischemia. Critical Care Time Critical Care Time: Yes Total Critical Care Time: 31 Disposition Clinical Impression: Ovarian mass, Symptomatic anemia Disposition: ADMITTED IP TO THIS [facility] Condition: Stable Referrals: None,Stated [Primary Care Provider] - 1-2 days Time of Disposition: 23:15
[2024-09-13] MEDS: ALBUMIN HUMAN 25% 50 ML in EMPTY BAG 1 BAG IVPB SCH (00:33)
[2024-09-13] MEDS: FUROSEMIDE 20 MG TAB PO STA (00:41)
--- NOTE | 2024-09-13 01:01 | P.HPIM ---
History of Present Illness H&P Date: 09/12/24 Chief Complaint: Abdominal pain Patient is a 78 year old female with groin abscess presented to the ED with abdominal pain. Patient reports having chronic abdominal pain as well as weakness. She reports that her abdominal discomfort has gotten progressively worse over the past few days. She states the pain is worse when she eats and along with bloating and palpitations. She experiences discomfort with solid foods but not with liquid diet, so she has tried to change her diet lately. Denies any blood loss in stools, black/dark stools, spotting. On a prior admission CT scan revealed 18 cm cystic structure in the pelvis concerning for a cystic ovarian mass. This was reviewed with the patient; she does not want this addressed while she is here, thus no further workup was done. Moreover, she mentions having a fall a year ago where she hit her head and was bleeding but did not get a medical evaluation at the time. She does not have a PCP. Denies fever, chills, shortness of breath, cough, chest pain, palpitations, nausea, vomiting, hematuria, dysuria, hematochezia, melena, headache, slurred speech, numbness, tingling, dizziness, lightheadedness, blurred vision, double vision. ED documentation reviewed. In the ED patient was treated with ondansetron, panto prazole, 0.9 normal saline. Vitals on admission T 98.4 F, CA 114 bpm, RR 18, BP 114/72, SpO2 96% on room air EKG independently interpreted as sinus rhythm, rate 99 bpm, QTc 294 ms Abdomen/pelvis CT shows increasing size of large cystic structure with thin septations originating in the pelvis and extending into the lower abdomen concerning for ovarian cystic neoplasm, no distinct enhancing mural nodularity identified this creates some mass effect upon the surrounding structures, no adenopathy identified. Resolution of previously demonstrated urinary bladder prolapse from prior exam. Small to moderate ascites throughout the abdomen and pelvis. Small bilateral pleural effusions with associated atelectasis Labs on admission show WBC 6.49, hemoglobin 3.5, hematocrit 13.7, MCV 62.3, platelet 156, PT 13.8, INR 1.3, APTT 20.7, sodium 135, potassium 3.7, BUN 24, creatinine 0.98, albumin 2.8 Review of systems: Pertinent positives and negatives as discussed in HPI, a complete review of s ystems was performed and all other systems are negative. Physical examination: Vital signs reviewed General: nontoxic, no distress, appears at stated age Derm: warm, dry, intact Head: atraumatic, normocephalic, symmetric Eyes: EOMI, anicteric sclera Mouth: no lip lesion, mucus membranes moist Cardiovascular: S1 S2 reg, no murmur Lungs: CTA bilateral, no rhonchi, no rales, no accessory muscle use Abdominal: soft, non-tender to palpation Extremities: 2+ pitting edema on b/l LE Neuro: Alert, Oriented, strength 4/5 in all 4 extremities Psych: well appearing, appropriate affect Assessment/Plan: Patient is a 78 year old female with groin abscess presented to the ED with abdominal pain. Patient admitted to internal medicine service. Active: #. Microcytic anemia 2 units PRBC given in the ED Obtain iron panel, LDH, retic count, folate, vitamin B12 stool occult blood IV iron Monitor CBC every 6 hours Transfuse for Hb< 7 #. Pelvic mass #. 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 Weakness #. Protein calorie malnutrition #. Lower extremity edema #. Moderate ascites #. Coagulopathy #. Bilateral pleural effusion -Abdomen/pelvis CT shows increasing size of large cystic structure with thin septations originating in the pelvis and extending into the lower abdomen conc erning for ovarian cystic neoplasm, no distinct enhancing mural nodularity identified this creates some mass effect upon the surrounding structures, no adenopathy identified. Small to moderate ascites throughout the abdomen and pelvis. Small bilateral pleural effusions with associated atelectasis -Albumin 50 mL IV Q1H, 2 bags -Lasix 20 mg PO once -Lasix 20 mg IV Q12HR -Obtain echocardiogram and BNP -Obtain Urinalysis -Continue telemetry monitoring -Monitor coagulation panel -General Surgery consulted -Heme-onc consulted #. Nausea and vomiting Continue Ondansetron 4 mg IVP Q8HR PRN F: None E: Replete as required N: Heart healthy diet DVT prophylaxis: SCD GI prophylaxis: Pantoprazole 40 mg IV daily The patient is admitted with an anticipated more than 2 midnight stay for evaluation of abdominal pain CODE STATUS: FULL CODE Discussed with: Patient Anticipated discharge place: Pending clinical course Dictation was produced using [email or web address] software. please excuse any grammatical, word or spelling errors. Xochitl Tao MD PGY-1 IM Attestation : Patient seen and examined with behavioral medical director. Agree with above assessment and plan. Patient is a 78-year-old female with groin abscess presented to the ED with abdominal pain. Patient reports having chronic abdominal pain as well as weakness. She reports that her abdominal discomfort has gotten progressively worse over the past few days. On a prior admission CT scan revealed 18 cm cystic structure in the pelvis concerning for a cystic ovarian mass. This was reviewed with the patient; she does not want this addressed while she is here, thus no further workup was done. Labs done showing a hemoglobin of 3.5. No reports of GI bleed, black tarry stool or hematemesis . Patient does report taking aspirin daily. CT was done today showing s increasing size of large cystic structure with thin septations originating in the pelvis and extending into the lower abdomen concerning for ovarian cystic neoplasm, no distinct enhancing mural nodularity identified this creates some mass effect upon the surrounding structures, no adenopathy identified. Resolution of previously demonstrated urinary bladder prolapse from prior exam. Small to moderate ascites throughout the abdomen and pelvis. Small bilateral pleural effusions with associated atelectasis. Patient will receive 2 units of packed RBC, repeat hemoglobin, will start with IV Lasix and albumin infusion. General surgery and oncology will be consulted. Pending anemia workup . CODE STATUS was discussed with patient and she would like to remain full code Time spent : 50 min Past Medical History Past Medical History: No Reported History Additional Past Medical History / Comment(s): Abcess to the groin History of Any Multi-Drug Resistant Organisms: None Reported Past Surgical History: No Surgical Hx Reported Past Psychological History: No Psychological Hx Reported Smoking Status: Never smoker Past Alcohol Use History: Occasional Past Drug Use History: None Reported Medications and Allergies Home Medications Medication Instructions Recorded Confirmed Type Aspirin 325 mg PO Q4H PRN 12/22/23 12/22/23 History Levofloxacin [Levaquin] 500 mg PO DAILY 10 Days #10 tab 12/23/23 Rx Allergies Allergy/AdvReac Type Severity Reaction Status Date / Time No Known Allergies Allergy Verified 09/12/24 19:16 Physical Exam Vitals: Vital Signs Temp Pulse Resp BP Pulse Ox 09/12/24 19:07 98.4 F 114 H 18 114/72 96 Intake and Output 09/12/24 09/12/24 09/13/24 14:59 22:59 06:59 Other: Weight 49.895 kg Results CBC & Chem 7: 09/12/24 21:08 09/12/24 19:49 Labs: Abnormal Lab Results - Last 24 Hours (Table) 09/12/24 09/12/24 09/12/24 Range/Units 19:49 19:49 21:08 RBC 2.20 L (4.10-5.20) 10*6/uL Hgb 3.5 L* (12.0-15.0) g/dL Hct 13.7 L* (37.2-46.3) % MCV 62.3 L (80.0-97.0) fL MCH 15.9 L (27.0-32.0) pg MCHC 25.5 L (32.0-37.0) g/dL Immature Gran # 0.07 H (0.00-0.04) 10*3/uL Eosinophils # 0.02 L (0.04-0.35) 10*3/uL PT 13.8 H (10.0-12.5) sec INR 1.3 H (<1.2) APTT 20.7 L (22.0-30.0) sec Sodium 135 L (137-145) mmol/L BUN 24 H (7-17) mg/dL Glucose 104 H (74-99) mg/dL Total Protein 5.1 L (6.3-8.2) g/dL Albumin 2.8 L (3.5-5.0) g/dL Crossmatch 09/12/24 Range/Units 22:38 RBC (4.10-5.20) 10*6/uL Hgb (12.0-15.0) g/dL Hct (37.2-46.3) % MCV (80.0-97.0) fL MCH (27.0-32.0) pg MCHC (32.0-37.0) g/dL Immature Gran # (0.00-0.04) 10*3/uL Eosinophils # (0.04-0.35) 10*3/uL PT (10.0-12.5) sec INR (<1.2) APTT (22.0-30.0) sec Sodium (137-145) mmol/L BUN (7-17) mg/dL Glucose (74-99) mg/dL Total Protein (6.3-8.2) g/dL Albumin (3.5-5.0) g/dL Crossmatch See Detail
[2024-09-13 07:30] LABS: Basophils # (A) 0.03 10*3/uL (0.00-0.10); Basophils % (A) 0.4 %; Eosinophils # (A) 0.04 10*3/uL (0.04-0.35); Eosinophils % (A) 0.6 %; HCT 23.7 % (37.2-46.3); Lymphocytes # (A) 2.11 10*3/uL (0.90-5.00); Lymphocytes % (A) 31.4 %; MCH 20.9 pg (27.0-32.0); MCHC 29.1 g/dL (32.0-37.0); Mean Platelet Volume 9.5 fL (9.5-12.2); Monocytes # (A) 0.58 10*3/uL (0.20-1.00); Monocytes % (A) 8.6 %; Neutrophils # (A) 3.91 10*3/uL (1.80-7.70); Neutrophils % (A) 58.4 %; Platelet Count 137 10*3/uL (140-440); RDW 22.8 % (11.5-14.5); WBC 6.71 10*3/uL (4.50-10.00)
[2024-09-13 07:39] LABS: HGB 6.9 g/dL (12.0-15.0)
[2024-09-13 07:40] LABS: MCV 71.8 fL (80.0-97.0)
[2024-09-13 07:41] LABS: ALT <6 U/L (4-34); AST 15 U/L (14-36); African American GFR (CKD) 64 (>60 ml/min/1.73 sqM); Alkaline Phosphatase 67 U/L (38-126); Anion Gap 6 mmol/L; Blood Urea Nitrogen 22 mg/dL (7-17); Carbon Dioxide 22 mmol/L (22-30); Chloride 109 mmol/L (98-107); Glucose 91 mg/dL (74-99); Non-African American GFR(CKD) 55 (>60 ml/min/1.73 sqM); Potassium 3.7 mmol/L (3.5-5.1); Sodium 137 mmol/L (137-145); Total Bilirubin 1.9 mg/dL (0.2-1.3); Total Protein 5.1 g/dL (6.3-8.2)
[2024-09-13] MEDS: PANTOPRAZOLE 40 MG/10 ML VIAL IV SCH (08:24)
[2024-09-13] MEDS: FUROSEMIDE 10 MG/ML 2 ML VIAL IV SCH (08:25)
[2024-09-13] MEDS: SODIUM FERRIC GLUCONAT-SUCROSE 125 MG in SODIUM CHLORIDE 0.9% 100 ML IVPB SCH (10:03)
--- NOTE | 2024-09-13 10:10 | P.GSCN ---
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 Patient has refused to see [facility] oncology. Patient presented to the ER due to dizziness due to anemia. Patient denies any GI bleed. Past Medical History Past Medical History: No Reported History Additional Past Medical History / Comment(s): Abcess to the groin History of Any Multi-Drug Resistant Organisms: None Reported Past Surgical History: No Surgical Hx Reported Past Psychological History: No Psychological Hx Reported Smoking Status: Never smoker Past Alcohol Use History: Occasional Past Drug Use History: None Reported Medications and Allergies Home Medications Medication Instructions Recorded Confirmed Type Aspirin 650 mg PO BID 12/22/23 09/13/24 History Allergies Allergy/AdvReac Type Severity Reaction Status Date / Time No Known Allergies Allergy Verified 09/13/24 07:44 Surgical - Exam Vital Signs Temp Pulse Resp BP Pulse Ox 98.4 F 114 H 18 114/72 96 09/12/24 19:07 09/12/24 19:07 09/12/24 19:07 09/12/24 19:07 09/12/24 19:07 - General well developed, well nourished, no distress - Eyes PERRL - ENT normal pinna - Neck no masses - Respiratory normal expansion - Cardiovascular Rhythm: regular - Abdomen Possible mass in pelvis Abdomen: soft, non tender Results - Labs 09/13/24 07:05 09/13/24 07:05 Abnormal Lab Results - Last 24 Hours (Table) 09/12/24 09/12/24 09/12/24 Range/Units 19:49 19:49 21:08 RBC 2.20 L (4.10-5.20) 10*6/uL Hgb 3.5 L* (12.0-15.0) g/dL Hct 13.7 L* (37.2-46.3) % MCV 62.3 L (80.0-97.0) fL MCH 15.9 L (27.0-32.0) pg MCHC 25.5 L (32.0-37.0) g/dL Plt Count (140-440) 10*3/uL Immature Gran # 0.07 H (0.00-0.04) 10*3/uL Eosinophils # 0.02 L (0.04-0.35) 10*3/uL PT 13.8 H (10.0-12.5) sec INR 1.3 H (<1.2) APTT 20.7 L (22.0-30.0) sec Sodium 135 L (137-145) mmol/L Chloride (98-107) mmol/L BUN 24 H (7-17) mg/dL Glucose 104 H (74-99) mg/dL Total Bilirubin (0.2-1.3) mg/dL Total Protein 5.1 L (6.3-8.2) g/dL Albumin 2.8 L (3.5-5.0) g/dL Crossmatch 09/12/24 09/13/24 09/13/24 Range/Units 22:38 07:05 07:05 RBC 3.30 L (4.10-5.20) 10*6/uL Hgb 6.9 L* D (12.0-15.0) g/dL Hct 23.7 L (37.2-46.3) % MCV 71.8 L D (80.0-97.0) fL MCH 20.9 L (27.0-32.0) pg MCHC 29.1 L (32.0-37.0) g/dL Plt Count 137 L (140-440) 10*3/uL Immature Gran # (0.00-0.04) 10*3/uL Eosinophils # (0.04-0.35) 10*3/uL PT (10.0-12.5) sec INR (<1.2) APTT (22.0-30.0) sec Sodium (137-145) mmol/L Chloride 109 H (98-107) mmol/L BUN 22 H (7-17) mg/dL Glucose (74-99) mg/dL Total Bilirubin 1.9 H (0.2-1.3) mg/dL Total Protein 5.1 L (6.3-8.2) g/dL Albumin 3.0 L (3.5-5.0) g/dL Crossmatch See Detail Diabetes panel 09/12/24 09/13/24 Range/Units 19:49 07:05 Sodium 135 L 137 (137-145) mmol/L Potassium 3.7 3.7 (3.5-5.1) mmol/L Chloride 107 109 H (98-107) mmol/L Carbon Dioxide 22 22 (22-30) mmol/L BUN 24 H 22 H (7-17) mg/dL Creatinine 0.98 0.99 (0.52-1.04) mg/dL Glucose 104 H 91 (74-99) mg/dL Calcium 10.2 10.0 (8.4-10.2) mg/dL AST 19 15 (14-36) U/L ALT 6 <6 (4-34) U/L Alkaline Phosphatase 77 67 (38-126) U/L Total Protein 5.1 L 5.1 L (6.3-8.2) g/dL Albumin 2.8 L 3.0 L (3.5-5.0) g/dL Calcium panel 09/12/24 09/13/24 Range/Units 19:49 07:05 Calcium 10.2 10.0 (8.4-10.2) mg/dL Albumin 2.8 L 3.0 L (3.5-5.0) g/dL Pituitary panel 09/12/24 09/13/24 Range/Units 19:49 07:05 Sodium 135 L 137 (137-145) mmol/L Potassium 3.7 3.7 (3.5-5.1) mmol/L Chloride 107 109 H (98-107) mmol/L Carbon Dioxide 22 22 (22-30) mmol/L BUN 24 H 22 H (7-17) mg/dL Creatinine 0.98 0.99 (0.52-1.04) mg/dL Glucose 104 H 91 (74-99) mg/dL Calcium 10.2 10.0 (8.4-10.2) mg/dL Adrenal panel 09/12/24 09/13/24 Range/Units 19:49 07:05 Sodium 135 L 137 (137-145) mmol/L Potassium 3.7 3.7 (3.5-5.1) mmol/L Chloride 107 109 H (98-107) mmol/L Carbon Dioxide 22 22 (22-30) mmol/L BUN 24 H 22 H (7-17) mg/dL Creatinine 0.98 0.99 (0.52-1.04) mg/dL Glucose 104 H 91 (74-99) mg/dL Calcium 10.2 10.0 (8.4-10.2) mg/dL Total Bilirubin 0.4 1.9 H (0.2-1.3) mg/dL AST 19 15 (14-36) U/L ALT 6 <6 (4-34) U/L Alkaline Phosphatase 77 67 (38-126) U/L Total Protein 5.1 L 5.1 L (6.3-8.2) g/dL Albumin 2.8 L 3.0 L (3.5-5.0) g/dL Assessment and Plan Assessment: Anemia. There is no evidence of GI bleed. Patient will need workup by [facility] onco logy. Would recommend transfer to facility with [facility] oncology.
[2024-09-13 10:33] LABS: Anisocytosis (M) Present; Hypochromasia (M) Present; Poikilocytosis (M) Present
[2024-09-13 12:27] LABS: HCT 27.4 % (37.2-46.3); MCH 21.2 pg (27.0-32.0); MCHC 29.2 g/dL (32.0-37.0); MCV 72.7 fL (80.0-97.0); Mean Platelet Volume 9.6 fL (9.5-12.2); Platelet Count 143 10*3/uL (140-440); RBC 3.77 10*6/uL (4.10-5.20); RDW 22.5 % (11.5-14.5); WBC 7.49 10*3/uL (4.50-10.00)
--- NOTE | 2024-09-13 12:40 | P.PN ---
Subjective Progress Note Date: 09/13/24 vHospital Course: Patient is a 78 year old female with groin abscess presented to the ED with a bdominal pain. Patient reports having chronic abdominal pain as well as weakness. She reports that her abdominal discomfort has gotten progressively worse over the past few days. She states the pain is worse when she eats and along with bloating and palpitations. She experiences discomfort with solid foods but not with liquid diet, so she has tried to change her diet lately. Denies any blood loss in stools, black/dark stools, spotting. On a prior admission CT scan revealed 18 cm cystic structure in the pelvis concerning for a cystic ovarian mass. This was reviewed with the patient; she does not want this addressed while she is here, thus no further workup was done. Moreover, she mentions having a fall a year ago where she hit her head and was bleeding but did not get a medical evaluation at the time. She does not have a PCP. Denies fever, chills, shortness of breath, cough, chest pain, palpitations, nausea, vomiting, hematuria, dysuria, hematochezia, melena, headache, slurred speech, numbness, tingling, dizziness, lightheadedness, blurred vision, double vision. ED documentation reviewed. In the ED patient was treated with ondansetron, pantoprazole, 0.9 normal saline.Vitals on admission T 98.4 F, [place] 114 bpm, RR 18, BP 114/72, SpO2 96% on room air.EKG independently interpreted as sinus rhythm, rate 99 bpm, QTc 294 ms. Abdomen/pelvis CT shows increasing size of large cystic structure with thin septations originating in the pelvis and extending into the lower abdomen con cerning for ovarian cystic neoplasm, no distinct enhancing mural nodularity identified this creates some mass effect upon the surrounding structures, no adenopathy identified. Resolution of previously demonstrated urinary bladder prolapse from prior exam. Small to moderate ascites throughout the abdomen and pelvis. Small bilateral pleural effusions with associated atelectasis Labs on admission show WBC 6.49, hemoglobin 3.5, hematocrit 13.7, MCV 62.3, platelet 156, PT 13.8, INR 1.3, APTT 20.7, sodium 135, potassium 3.7, BUN 24, creatinine 0.98, albumin 2.8 Admitted as inpatient for acute anemia requiring blood transfusion, oncology and general surgery on board. Patient was seen and examined on 09/13 at bedside in the ER, no acute events overnight, she states that she feels better, feels more energy, noted abdominal distention, denies dizziness, lightheadedness, chest pain, shortness of breath. She is afebrile with soft blood pressure 102/69, heart rate in 70s. Morning hemoglobin 6.9, 1 unit of PRBC ordered, platelet count was 137, sodium, potassium, creatinine WNL, total bili 1.9. Urgent surgery, no evidence of GI bleed, commended to transfer to the facility with gynecology, patient declined and would like to explore her options with oncology team. Patient also shared that she has not seen a doctor in 15 years, has never had a colonoscopy done. Discussed with RN Pertinent positives and negatives as discussed above, a complete review of systems was performed and all other systems are negative. Vitals Signs Reviewed. General: [nontoxic], [no distress], [appears at stated age] Derm: [warm], [dry] Head: [atraumatic], [normocephalic], [symmetric] Eyes: [EOMI], [no lid lag], [anicteric sclera] Mouth: [no lip lesion], [mucus membranes moist] Cardiovascular: [S1S2 reg], [no murmur] Lungs: [CTA bilateral], [no rhonchi, no rales] , [no accessory muscle use] Abdominal: Distended, mild generalized tenderness Ext: [no gross muscle atrophy], [left lower extremity edema, chronic, unchanged], [no contractures] Neuro: [ CN II-XI grossly intact], [no focal neuro deficits] Psych: [Alert], [oriented], [appropriate affect] Assessment and Plan: Severe symptomatic microcytic anemia 2 units PRBC given in the ED, 1 additional unit 09/13 Obtain iron panel, LDH, retic count, folate, vitamin B12 stool occult blood IV iron Monitor CBC every 6 hours Transfuse for Hb< 7 Pelvic mass 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 Small to moderate ascites throughout the abdomen and pelvis. Small bilateral pleural effusions with associated atelectasis -Albumin 50 mL IV Q1H, 2 bags -Lasix 20 mg IV Q12HR -Obtain echocardiogram and BNP, age-adjusted BNP normal, ordered by admitting team -Obtain Urinalysis -Continue telemetry monitoring -Monitor coagulation panel -General Surgery consulted -Heme-onc consulted, plan for paracentesis - Nutrition consulted Nausea and vomiting Continue Ondansetron 4 mg IVP Q8HR PRN DVT ppx: SCD Code status: Full code Anticipated discharge place: TBD Anticipated discharge time: TBD Objective - Vital Signs Vital signs: Vital Signs Temp 98.1 F 09/13/24 12:13 Pulse 74 09/13/24 12:13 Resp 12 09/13/24 12:13 BP 110/72 09/13/24 12:13 Pulse Ox 96 09/13/24 12:13 FiO2 Intake & Output 09/12/24 09/13/24 09/13/24 18:59 06:59 18:59 Intake Total 554 0 Balance 554 0 Weight 49.895 kg Intake: Blood Product 554 0 Rc As-1 Unit 0 [id number] Rc Pheresis 2 As3 Unit 279 [id number] Rc Pheresis As-3 Unit 275 [id number] - Labs CBC & Chem 7: 09/13/24 12:14 09/13/24 07:05 Labs: Abnormal Lab Results - Last 24 Hours (Table) 09/12/24 09/12/24 09/12/24 Range/Units 19:49 19:49 21:08 RBC 2.20 L (4.10-5.20) 10*6/uL Hgb 3.5 L* (12.0-15.0) g/dL Hct 13.7 L* (37.2-46.3) % MCV 62.3 L (80.0-97.0) fL MCH 15.9 L (27.0-32.0) pg MCHC 25.5 L (32.0-37.0) g/dL RDW (11.5-14.5) % Plt Count (140-440) 10*3/uL Immature Gran # 0.07 H (0.00-0.04) 10*3/uL Eosinophils # 0.02 L (0.04-0.35) 10*3/uL PT 13.8 H (10.0-12.5) sec INR 1.3 H (<1.2) APTT 20.7 L (22.0-30.0) sec Sodium 135 L (137-145) mmol/L Chloride (98-107) mmol/L BUN 24 H (7-17) mg/dL Glucose 104 H (74-99) mg/dL Total Bilirubin (0.2-1.3) mg/dL Total Protein 5.1 L (6.3-8.2) g/dL Albumin 2.8 L (3.5-5.0) g/dL Crossmatch 09/12/24 09/13/24 09/13/24 Range/Units 22:38 07:05 07:05 RBC 3.30 L (4.10-5.20) 10*6/uL Hgb 6.9 L* D (12.0-15.0) g/dL Hct 23.7 L (37.2-46.3) % MCV 71.8 L D (80.0-97.0) fL MCH 20.9 L (27.0-32.0) pg MCHC 29.1 L (32.0-37.0) g/dL RDW (11.5-14.5) % Plt Count 137 L (140-440) 10*3/uL Immature Gran # (0.00-0.04) 10*3/uL Eosinophils # (0.04-0.35) 10*3/uL PT (10.0-12.5) sec INR (<1.2) APTT (22.0-30.0) sec Sodium (137-145) mmol/L Chloride 109 H (98-107) mmol/L BUN 22 H (7-17) mg/dL Glucose (74-99) mg/dL Total Bilirubin 1.9 H (0.2-1.3) mg/dL Total Protein 5.1 L (6.3-8.2) g/dL Albumin 3.0 L (3.5-5.0) g/dL Crossmatch See Detail 09/13/24 Range/Units 12:14 RBC 3.77 L (4.10-5.20) 10*6/uL Hgb 8.0 L (12.0-15.0) g/dL Hct 27.4 L (37.2-46.3) % MCV 72.7 L (80.0-97.0) fL MCH 21.2 L (27.0-32.0) pg MCHC 29.2 L (32.0-37.0) g/dL RDW 22.5 H (11.5-14.5) % Plt Count (140-440) 10*3/uL Immature Gran # (0.00-0.04) 10*3/uL Eosinophils # (0.04-0.35) 10*3/uL PT (10.0-12.5) sec INR (<1.2) APTT (22.0-30.0) sec Sodium (137-145) mmol/L Chloride (98-107) mmol/L BUN (7-17) mg/dL Glucose (74-99) mg/dL Total Bilirubin (0.2-1.3) mg/dL Total Protein (6.3-8.2) g/dL Albumin (3.5-5.0) g/dL Crossmatch
[2024-09-13 14:26] LABS: % Iron Saturation 3.04 (12.00-45.00); Ferritin 26.3 ng/mL (10.0-291.0)
--- NOTE | 2024-09-13 16:00 | US ---
EXAMINATION TYPE: US paracentesis abd w/image DATE OF EXAM: 09/13/2024 CLINICAL HISTORY: 78-year-old female with large cystic mass occupying the abdomen and pelvis and dis tention. Referred for diagnostic paracentesis. The procedure was discussed with the patient. The risks, complications, benefits, and alternatives we re discussed and any questions were answered. Informed consent was obtained. The patient was placed s upine on the ultrasound table and prepped and draped in the usual sterile fashion. All elements of maximal barrier technique were utilized. Only minimal ascites fluid was noted adjacent to the liver. This was targeted for aspiration. Ultrasound was utilized to determine the precise skin entry site along the right perihepatic region. A 5 English One-Step catheter and trocar technique was utilized to access the ascites collection under direct ultrasound guidance. Approximately 220 mL of clear, straw-colored fluid was removed. An initial 100 mL sample was collecte d, labeled, and sent for laboratory analysis. Catheter was removed, hemostasis obtained, and a dressing placed. The patient was stable throughout the procedure and remained stable upon discharge from Department of Radiology. IMPRESSION: Successful diagnostic paracentesis under ultrasound guidance. 220 mL of fluid removed. Laboratory kathryn lysis pending. [facility], , 09/13/2024 3:58 PM
[2024-09-13 17:52] LABS: HCT 32.4 % (37.2-46.3); Immature Platelet Fraction 4.3 % (1.1-6.1); MCH 21.6 pg (27.0-32.0); MCHC 29.3 g/dL (32.0-37.0); MCV 73.8 fL (80.0-97.0); Mean Platelet Volume 10.3 fL (9.5-12.2); Platelet Count 139 10*3/uL (140-440); RBC 4.39 10*6/uL (4.10-5.20); RDW 21.5 % (11.5-14.5); WBC 8.56 10*3/uL (4.50-10.00)
[2024-09-13 18:05] LABS: HGB 9.5 g/dL (12.0-15.0)
[2024-09-13] MEDS ORDERED: RX INFO: IV CONTRAST WAS GIVEN 1 EACH MISC MISCELLANE PRN (18:44)
[2024-09-13 19:38] LABS: Glucose, BF Source Ascites; Glucose, Body Fluid 117 mg/dL; T. Protein, Body Fluid Source Ascites; Total Protein, Body Fluid 1640 mg/dL
[2024-09-13 20:23] LABS: Appearance,BF Clear (Clear)
--- NOTE | 2024-09-13 23:38 | P.CONS ---
History of Present Illness - Reason for Consult Consult date: 09/13/24 ovarian mass Requesting physician: Prem Beltre - Chief Complaint abd pain, weakness - History of Present Illness Patient is a 78-year-old female who presented to emergency room with complaints of abdominal bloating/pressure and weakness. Patient also reports she has been experiencing dizziness. Upon admit hemoglobin noted at 3.5, MCV 62.5, platelets 156,000. Patient was given 2 units PRBCs with repeat hemoglobin showing appropriate response at 6.9. Third unit PRBCs ordered. CT abdomen pelvis was obtained showing increasing size of large cystic structure with thin septations originating in the pelvis and extending to the lower abdomen, grossly measuring 12.7 x 21.1 x 18.6 cm. Small to moderate ascites throughout the abdomen and pelvis. Mass was noted in previous CT in 11/2023, but pt has not followed up for the same. Folate 7.2, vitamin B12 384, iron saturation 3.0, ferritin 26.3 IV iron has been started. At today's visit patient is reporting persisting abdominal bloating and pressure. Denies abdominal pain, nausea vomiting diarrhea. Denies vaginal bleeding, rectal bleeding and melena. Patient denies personal history of cancer. Denies unintentional weight loss and night sweats. Review of Systems 10 point ROS is negative except as stated in the HPI Past Medical History Past Medical History: No Reported History Additional Past Medical History / Comment(s): Abcess to the groin History of Any Multi-Drug Resistant Organisms: None Reported Past Surgical History: No Surgical Hx Reported Past Anesthesia/Blood Transfusion Reactions: No Reported Reaction Past Psychological History: No Psychological Hx Reported Smoking Status: Never smoker Past Alcohol Use History: Occasional Past Drug Use History: None Reported - Past Family History Mother Additional Family Medical History / Comment(s): past away at 26yrs old due to of a child Father Family Medical History: Cancer Additional Family Medical History / Comment(s): past away from stomach cancer Medications and Allergies Home Medications Medication Instructions Recorded Confirmed Type Aspirin 650 mg PO BID 12/22/23 09/13/24 History Allergies Allergy/AdvReac Type Severity Reaction Status Date / Time No Known Allergies Allergy Verified 09/13/24 07:44 Physical Exam Vitals: Vital Signs Temp Pulse Pulse Resp BP BP Pulse Ox 09/13/24 17:31 97.5 F L 70 18 111/68 95 09/13/24 14:45 97.8 F 71 16 109/68 09/13/24 13:20 75 16 107/76 09/13/24 13:15 77 16 114/74 09/13/24 13:05 111/75 09/13/24 12:13 98.1 F 74 12 110/72 96 09/13/24 11:53 97.9 F 75 16 102/69 98 09/13/24 11:41 97.8 F 76 20 108/70 09/13/24 10:08 77 20 101/71 96 09/13/24 04:51 97.6 F 75 17 100/56 98 09/13/24 03:52 97.6 F 73 17 104/58 99 09/13/24 03:32 97.7 F 80 17 106/59 100 09/13/24 03:19 97.9 F 81 17 95/59 96 09/13/24 02:56 97.5 F L 86 17 113/55 97 09/13/24 01:07 97.8 F 78 17 112/59 100 09/13/24 00:47 97.6 F 89 17 112/61 100 09/13/24 00:19 97.4 F L 107 H 17 99/63 100 09/12/24 19:07 98.4 F 114 H 18 114/72 96 Intake and Output 09/13/24 09/13/24 09/13/24 06:59 14:59 22:59 Intake Total 554 310 Balance 554 310 Intake: Blood Product 554 310 Rc As-1 Unit 310 [id number] Rc Pheresis 2 As3 Unit 279 [id number] Rc Pheresis As-3 Unit 275 [id number] Other: Weight 49.895 kg - Constitutional General appearance: no acute distress, thin - EENT Eyes: anicteric sclerae, EOMI ENT: hearing grossly normal - Respiratory Respiratory: bilateral: CTA - Cardiovascular Rhythm: regular - Gastrointestinal General gastrointestinal: distended, no tenderness - Integumentary Integumentary: no cyanotic - Psychiatric Psychiatric: A&O x's 3 Results CBC & Chem 7: 09/13/24 17:35 09/13/24 07:05 Labs: Abnormal Lab Results - Last 24 Hours (Table) 09/12/24 09/12/24 09/12/24 Range/Units 19:49 19:49 21:08 RBC 2.20 L (4.10-5.20) 10*6/uL Hgb 3.5 L* (12.0-15.0) g/dL Hct 13.7 L* (37.2-46.3) % MCV 62.3 L (80.0-97.0) fL MCH 15.9 L (27.0-32.0) pg MCHC 25.5 L (32.0-37.0) g/dL RDW (11.5-14.5) % Plt Count (140-440) 10*3/uL Immature Gran # 0.07 H (0.00-0.04) 10*3/uL Eosinophils # 0.02 L (0.04-0.35) 10*3/uL PT 13.8 H (10.0-12.5) sec INR 1.3 H (<1.2) APTT 20.7 L (22.0-30.0) sec Sodium 135 L (137-145) mmol/L Chloride (98-107) mmol/L BUN 24 H (7-17) mg/dL Glucose 104 H (74-99) mg/dL Iron (50-170) UG/DL % Saturation (12.00-45.00) Total Bilirubin (0.2-1.3) mg/dL Total Protein 5.1 L (6.3-8.2) g/dL Albumin 2.8 L (3.5-5.0) g/dL Crossmatch 09/12/24 09/12/24 09/13/24 Range/Units 22:38 23:36 07:05 RBC 3.30 L (4.10-5.20) 10*6/uL Hgb 6.9 L* D (12.0-15.0) g/dL Hct 23.7 L (37.2-46.3) % MCV 71.8 L D (80.0-97.0) fL MCH 20.9 L (27.0-32.0) pg MCHC 29.1 L (32.0-37.0) g/dL RDW (11.5-14.5) % Plt Count 137 L (140-440) 10*3/uL Immature Gran # (0.00-0.04) 10*3/uL Eosinophils # (0.04-0.35) 10*3/uL PT (10.0-12.5) sec INR (<1.2) APTT (22.0-30.0) sec Sodium (137-145) mmol/L Chloride (98-107) mmol/L BUN (7-17) mg/dL Glucose (74-99) mg/dL Iron 10 L (50-170) UG/DL % Saturation 3.04 L (12.00-45.00) Total Bilirubin (0.2-1.3) mg/dL Total Protein (6.3-8.2) g/dL Albumin (3.5-5.0) g/dL Crossmatch See Detail 09/13/24 09/13/24 09/13/24 Range/Units 07:05 12:14 17:35 RBC 3.77 L (4.10-5.20) 10*6/uL Hgb 8.0 L 9.5 L D (12.0-15.0) g/dL Hct 27.4 L 32.4 L (37.2-46.3) % MCV 72.7 L 73.8 L (80.0-97.0) fL MCH 21.2 L 21.6 L (27.0-32.0) pg MCHC 29.2 L 29.3 L (32.0-37.0) g/dL RDW 22.5 H 21.5 H (11.5-14.5) % Plt Count 139 L (140-440) 10*3/uL Immature Gran # (0.00-0.04) 10*3/uL Eosinophils # (0.04-0.35) 10*3/uL PT (10.0-12.5) sec INR (<1.2) APTT (22.0-30.0) sec Sodium (137-145) mmol/L Chloride 109 H (98-107) mmol/L BUN 22 H (7-17) mg/dL Glucose (74-99) mg/dL Iron (50-170) UG/DL % Saturation (12.00-45.00) Total Bilirubin 1.9 H (0.2-1.3) mg/dL Total Protein 5.1 L (6.3-8.2) g/dL Albumin 3.0 L (3.5-5.0) g/dL Crossmatch CT scan - abdomen: report reviewed CT scan - pelvis: report reviewed Assessment and Plan (1) Ovarian mass Current Visit: Yes Status: Acute Priority: High Code(s): N83.8 - OTH NONINFLAMMATORY DISORD OF OVARY, FALLOP AND BROAD LIGMT SNOMED Code(s): 478273696 (2) Symptomatic anemia Current Visit: Yes Status: Acute Priority: High Code(s): D64.9 - ANEMIA, UNSPECIFIED SNOMED Code(s): 015294068 Plan: Ovarian mass: Presented to emergency room with complaints of abdominal bloating/pressure and weakness. -CT abdomen pelvis was obtained showing increasing size of large cystic structure with thin septations originating in the pelvis and extending to the lower abdomen, grossly measuring 12.7 x 21.1 x 18.6 cm. Small to moderate ascites throughout the abdomen and pelvis. Mass was noted in previous CT in 11/2023, but pt has not followed up for the same. -Paracentesis ordered with fluid analysis/cytology -CT chest to complete staging -CA-125 obtained -Pt will need evaluation by [facility]. She stated she would be amendable to f/u in [place] but does not want to travel to [place] Discussed findings and concerns for malignancy. She was agreeable to proceed with further workup. All questions and concerns were addressed Microcytic anemia: -Upon admit hemoglobin noted at 3.5, MCV 62.5, platelets 156,000. -S/p 2 units PRBCs with repeat hemoglobin showing appropriate response at 6.9. 3rd unit PRBCs ordered. - Folate 7.2, vitamin B12 384, iron saturation 3.0%, ferritin 26.3. IV iron has been started. -Continue to monitor CBC. Transfuse for hgb <7 or if symptomatic
[2024-09-14 00:18] LABS: HCT 29.9 % (37.2-46.3); HGB 9.1 g/dL (12.0-15.0); MCH 21.9 pg (27.0-32.0); MCHC 30.4 g/dL (32.0-37.0); Mean Platelet Volume 9.4 fL (9.5-12.2); Platelet Count 134 10*3/uL (140-440); RBC 4.15 10*6/uL (4.10-5.20); WBC 8.19 10*3/uL (4.50-10.00)
[2024-09-14 06:21] LABS: Basophils # (A) 0.03 10*3/uL (0.00-0.10); Basophils % (A) 0.4 %; Eosinophils # (A) 0.08 10*3/uL (0.04-0.35); Eosinophils % (A) 1.2 %; HCT 29.5 % (37.2-46.3); HGB 8.8 g/dL (12.0-15.0); Immature Platelet Fraction 4.7 % (1.1-6.1); Lymphocytes # (A) 1.85 10*3/uL (0.90-5.00); Lymphocytes % (A) 27.4 %; MCH 21.8 pg (27.0-32.0); MCHC 29.8 g/dL (32.0-37.0); Monocytes # (A) 0.67 10*3/uL (0.20-1.00); Monocytes % (A) 9.9 %; Neutrophils # (A) 4.08 10*3/uL (1.80-7.70); Neutrophils % (A) 60.4 %; Platelet Count 136 10*3/uL (140-440); RBC 4.04 10*6/uL (4.10-5.20); RDW 22.3 % (11.5-14.5); WBC 6.76 10*3/uL (4.50-10.00)
[2024-09-14 06:54] LABS: African American GFR (CKD) 64 (>60 ml/min/1.73 sqM); Anion Gap 9 mmol/L; Blood Urea Nitrogen 19 mg/dL (7-17); Calcium 9.6 mg/dL (8.4-10.2); Carbon Dioxide 25 mmol/L (22-30); Chloride 103 mmol/L (98-107); Glucose 82 mg/dL (74-99); Non-African American GFR(CKD) 55 (>60 ml/min/1.73 sqM); Sodium 137 mmol/L (137-145)
[2024-09-14] MEDS ORDERED: RX INFO: IV CONTRAST WAS GIVEN 1 EACH MISC MISCELLANE PRN (08:03)
[2024-09-14] MEDS ORDERED: Potassium Replacement Protocol 1 EACH MISC MISCELLANE PRN (09:01)
--- NOTE | 2024-09-14 10:01 | P.PN ---
Subjective Progress Note Date: 09/14/24 Patient main stable. She shows no sign of GI bleed. On exam vital signs appear stable. Abdomen soft. Patient is agreeable to follow-up with [facility] in [place]. Objective - Vital Signs Vital signs: Vital Signs Temp 97.6 F 09/14/24 08:32 Pulse 49 L 09/14/24 08:32 Resp 16 09/14/24 08:32 BP 97/65 09/14/24 08:32 Pulse Ox 93 L 09/14/24 08:32 FiO2 Intake & Output 09/13/24 09/14/24 09/14/24 18:59 06:59 18:59 Intake Total 310 240 Output Total 300 Balance 10 240 Weight 49.895 kg Intake: Oral 240 Blood Product 310 Rc As-1 Unit 310 [id number] Output: Urine 300 Other: Voiding Method Diaper Diaper # Voids 1 - Labs CBC & Chem 7: 09/14/24 05:32 09/14/24 05:32 Labs: Abnormal Lab Results - Last 24 Hours (Table) 09/12/24 09/12/24 09/13/24 Range/Units 22:38 23:36 12:14 RBC 3.77 L (4.10-5.20) 10*6/uL Hgb 8.0 L (12.0-15.0) g/dL Hct 27.4 L (37.2-46.3) % MCV 72.7 L (80.0-97.0) fL MCH 21.2 L (27.0-32.0) pg MCHC 29.2 L (32.0-37.0) g/dL RDW 22.5 H (11.5-14.5) % Plt Count (140-440) 10*3/uL MPV (9.5-12.2) fL Immature Gran # (0.00-0.04) 10*3/uL Potassium (3.5-5.1) mmol/L BUN (7-17) mg/dL Iron 10 L (50-170) UG/DL % Saturation 3.04 L (12.00-45.00) Crossmatch See Detail 09/13/24 09/14/24 09/14/24 Range/Units 17:35 00:08 05:32 RBC (4.10-5.20) 10*6/uL Hgb 9.5 L D 9.1 L (12.0-15.0) g/dL Hct 32.4 L 29.9 L (37.2-46.3) % MCV 73.8 L 72.0 L (80.0-97.0) fL MCH 21.6 L 21.9 L (27.0-32.0) pg MCHC 29.3 L 30.4 L (32.0-37.0) g/dL RDW 21.5 H (11.5-14.5) % Plt Count 139 L 134 L (140-440) 10*3/uL MPV 9.4 L (9.5-12.2) fL Immature Gran # (0.00-0.04) 10*3/uL Potassium 3.0 L (3.5-5.1) mmol/L BUN 19 H (7-17) mg/dL Iron (50-170) UG/DL % Saturation (12.00-45.00) Crossmatch 09/14/24 Range/Units 05:32 RBC 4.04 L (4.10-5.20) 10*6/uL Hgb 8.8 L (12.0-15.0) g/dL Hct 29.5 L (37.2-46.3) % MCV 73.0 L (80.0-97.0) fL MCH 21.8 L (27.0-32.0) pg MCHC 29.8 L (32.0-37.0) g/dL RDW (11.5-14.5) % Plt Count 136 L (140-440) 10*3/uL MPV (9.5-12.2) fL Immature Gran # 0.05 H (0.00-0.04) 10*3/uL Potassium (3.5-5.1) mmol/L BUN (7-17) mg/dL Iron (50-170) UG/DL % Saturation (12.00-45.00) Crossmatch Microbiology - Last 24 Hours (Table) 09/13/24 13:25 Gram Stain - Preliminary Ascites Fluid
[2024-09-14] MEDS: POTASSIUM CHLORIDE 10 MEQ in WATER FOR INJECTION 1 100ML.BAG IVPB SCH (11:46)
[2024-09-14 12:16] LABS: Appearance,Urine Clear (Clear); Bacteria,Urine Rare /hpf; Bilirubin,Urine Negative (Negative); Blood,Urine Negative (Negative); Color,Urine Colorless; Glucose,Urine (UA) Negative (Negative); Ketones,Urine Negative (Negative); Leukocyte Esterase,Urine Moderate (Negative); Mucus,Urine Rare /hpf; Nitrite,Urine Negative (Negative); Protein,Urine Negative (Negative); RBC,Urine 1 /hpf (0-5); Specific Gravity,Urine 1.017 (1.001-1.035); Squamous Epithelial Cell,Urine 1 /hpf (0-4); Urobilinogen,Urine <2.0 mg/dL (<2.0); WBC,Urine 22 /hpf (0-5)
[2024-09-14] MEDS: POTASSIUM CHLORIDE ER 20 MEQ TAB.ER PO SCH (12:26)
[2024-09-14 12:37] VITALS: BMI 20.1
--- NOTE | 2024-09-14 12:51 | P.PN ---
Subjective Progress Note Date: 09/14/24 Hospital Course: Patient is a 78 year old female with groin abscess presented to the ED with ab dominal pain. Patient reports having chronic abdominal pain as well as weakness. She reports that her abdominal discomfort has gotten progressively worse over the past few days. She states the pain is worse when she eats and along with bloating and palpitations. She experiences discomfort with solid foods but not with liquid diet, so she has tried to change her diet lately. Denies any blood loss in stools, black/dark stools, spotting. On a prior admission CT scan revealed 18 cm cystic structure in the pelvis concerning for a cystic ovarian mass. This was reviewed with the patient; she does not want this addressed while she is here, thus no further workup was done. Moreover, she mentions having a fall a year ago where she hit her head and was bleeding but did not get a medical evaluation at the time. She does not have a PCP. Denies fever, chills, shortness of breath, cough, chest pain, palpitations, nausea, vomiting, hematuria, dysuria, hematochezia, melena, headache, slurred speech, numbness, tingling, dizziness, lightheadedness, blurred vision, double vision. ED documentation reviewed. In the ED patient was treated with ondansetron, pantoprazole, 0.9 normal saline.Vitals on admission T 98.4 F, NC 114 bpm, RR 18, BP 114/72, SpO2 96% on room air.EKG independently interpreted as sinus rhythm, rate 99 bpm, QTc 294 ms. Abdomen/pelvis CT shows increasing size of large cystic structure with thin septations originating in the pelvis and extending into the lower abdomen conc erning for ovarian cystic neoplasm, no distinct enhancing mural nodularity identified this creates some mass effect upon the surrounding structures, no adenopathy identified. Resolution of previously demonstrated urinary bladder prolapse from prior exam. Small to moderate ascites throughout the abdomen and pelvis. Small bilateral pleural effusions with associated atelectasis Labs on admission show WBC 6.49, hemoglobin 3.5, hematocrit 13.7, MCV 62.3, platelet 156, PT 13.8, INR 1.3, APTT 20.7, sodium 135, potassium 3.7, BUN 24, creatinine 0.98, albumin 2.8 Admitted as inpatient for acute anemia requiring blood transfusion, oncology and general surgery on board. Received 3 units PRBC total, started on IV iron. 09/14: Seen and examined at bedside, overnight patient received CT chest that was ordered by oncology for staging because she felt like she already had enough for a day, she is now agreeable to proceed with a CT chest. She feels better and stronger, her abdomen is still distended. She underwent diagnostic paracentesis on 09/13, peritoneal fluid shows lymphocytic predominance, no signs of SBP, SAAG 1.36 consistent with portal hypertension. Her blood pressure remains soft but stable, she is satting well on room air, heart rate in 60s. Hemoglobin 8.8 this morning, potassium 3.0, replaced with 40 mEq of oral as patient declined IV. Iron came back low 10, ferritin 26, B12 384, folate 7.2, low normal, will start 1 mg of folic acid daily. Discussed with RN, patient is A&Ox3 but appears to not have full understanding on her condition, will consider psych for decision tawanna ing capacity assessment Pertinent positives and negatives as discussed above, a complete review of systems was performed and all other systems are negative. Vitals Signs Reviewed. General: [nontoxic], [no distress], [appears at stated age] Derm: [warm], [dry] Head: [atraumatic], [normocephalic], [symmetric] Eyes: [EOMI], [no lid lag], [anicteric sclera] Mouth: [no lip lesion], [mucus membranes moist] Cardiovascular: [S1S2 reg], [no murmur] Lungs: [CTA bilateral], [no rhonchi, no rales] , [no accessory muscle use] Abdominal: Distended, mild generalized tenderness Ext: [no gross muscle atrophy], [left lower extremity edema, chronic, unchanged], [no contractures] Neuro: [ CN II-XI grossly intact], [no focal neuro deficits] Psych: [Alert], [oriented], [appropriate affect] Assessment and Plan: Severe symptomatic microcytic iron deficiency anemia 2 units PRBC given in the ED, 1 additional unit 09/13 Anemia workup as above IV iron daily Monitor CBC daily Transfuse for Hb< 7 Hematology oncology following Pelvic mass 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 Small to moderate ascites throughout the abdomen and pelvis. Small bilateral pleural effusions with associated atelectasis - S/p albumin 50 mL IV Q1H, 2 bags - Stop Lasix 20 mg IV Q12HR -Obtain echocardiogram and BNP, age-adjusted BNP normal, ordered by admitting team -Continue telemetry monitoring -Monitor coagulation panel -General Surgery consulted -Heme-onc consulted, s/p paracentesis 09/13, fluid analysis as above, cytology pending - Nutrition consulted - CT chest pending Hypokalemia: Potassium 3.0, replaced with 40 mEq of oral KCl, repeat BMP in the morning Nausea and vomiting Continue Ondansetron 4 mg IVP Q8HR PRN DVT ppx: SCD Code status: Full code Anticipated discharge place: TBD Anticipated discharge time: TBD Objective - Vital Signs Vital signs: Vital Signs Temp 97.6 F 09/14/24 08:32 Pulse 49 L 09/14/24 08:32 Resp 16 09/14/24 08:32 BP 97/65 09/14/24 08:32 Pulse Ox 93 L 09/14/24 08:32 FiO2 Intake & Output 09/13/24 09/14/24 09/14/24 18:59 06:59 18:59 Intake Total 310 240 Output Total 300 Balance 10 240 Weight 49.895 kg 49.895 kg Intake: Oral 240 Blood Product 310 Rc As-1 Unit 310 [id number] Output: Urine 300 Other: Voiding Method Diaper Diaper Diaper # Voids 1 - Labs CBC & Chem 7: 09/14/24 05:32 09/14/24 05:32 Labs: Abnormal Lab Results - Last 24 Hours (Table) 09/12/24 09/12/24 09/13/24 Range/Units 22:38 23:36 17:35 RBC (4.10-5.20) 10*6/uL Hgb 9.5 L D (12.0-15.0) g/dL Hct 32.4 L (37.2-46.3) % MCV 73.8 L (80.0-97.0) fL MCH 21.6 L (27.0-32.0) pg MCHC 29.3 L (32.0-37.0) g/dL RDW 21.5 H (11.5-14.5) % Plt Count 139 L (140-440) 10*3/uL MPV (9.5-12.2) fL Immature Gran # (0.00-0.04) 10*3/uL Potassium (3.5-5.1) mmol/L BUN (7-17) mg/dL Iron 10 L (50-170) UG/DL % Saturation 3.04 L (12.00-45.00) Ur Leukocyte Esterase (Negative) Urine WBC (0-5) /hpf Urine Bacteria (None) /hpf Urine Mucus (None) /hpf Crossmatch See Detail 09/14/24 09/14/24 09/14/24 Range/Units 00:08 05:32 05:32 RBC 4.04 L (4.10-5.20) 10*6/uL Hgb 9.1 L 8.8 L (12.0-15.0) g/dL Hct 29.9 L 29.5 L (37.2-46.3) % MCV 72.0 L 73.0 L (80.0-97.0) fL MCH 21.9 L 21.8 L (27.0-32.0) pg MCHC 30.4 L 29.8 L (32.0-37.0) g/dL RDW (11.5-14.5) % Plt Count 134 L 136 L (140-440) 10*3/uL MPV 9.4 L (9.5-12.2) fL Immature Gran # 0.05 H (0.00-0.04) 10*3/uL Potassium 3.0 L (3.5-5.1) mmol/L BUN 19 H (7-17) mg/dL Iron (50-170) UG/DL % Saturation (12.00-45.00) Ur Leukocyte Esterase (Negative) Urine WBC (0-5) /hpf Urine Bacteria (None) /hpf Urine Mucus (None) /hpf Crossmatch 09/14/24 Range/Units 11:41 RBC (4.10-5.20) 10*6/uL Hgb (12.0-15.0) g/dL Hct (37.2-46.3) % MCV (80.0-97.0) fL MCH (27.0-32.0) pg MCHC (32.0-37.0) g/dL RDW (11.5-14.5) % Plt Count (140-440) 10*3/uL MPV (9.5-12.2) fL Immature Gran # (0.00-0.04) 10*3/uL Potassium (3.5-5.1) mmol/L BUN (7-17) mg/dL Iron (50-170) UG/DL % Saturation (12.00-45.00) Ur Leukocyte Esterase Moderate H (Negative) Urine WBC 22 H (0-5) /hpf Urine Bacteria Rare H (None) /hpf Urine Mucus Rare H (None) /hpf Crossmatch Microbiology - Last 24 Hours (Table) 09/13/24 13:25 Gram Stain - Preliminary Ascites Fluid Body Fluid Culture - Preliminary
[2024-09-14 13:34] LABS: Cancer Antigen 125 61.6 U/mL (0.0-30.1)
[2024-09-14] MEDS: FOLIC ACID 1 MG TAB PO SCH (13:37)
--- NOTE | 2024-09-14 15:48 | CT ---
CT thorax with contrast HISTORY: Pelvic Mass. Rule out metastatic disease to the thorax. COMPARISON: None TECHNIQUE: Multiple axial images were obtained through the thorax following IV contrast. FINDINGS: There are no suspicious lung masses or nodules. There are small bilateral pleural effusions and mild lung consolidation in the lower lobes likely compressive atelectasis There is mild cardiomegaly. The great vessels the chest are normal in size. There is no mediastinal, hilar or axillary adenopathy. Limited scanning through the upper abdomen reveals no change in the hypodense well-circumscribed mass es within the liver most likely representing hepatic cysts. There is a small hiatal hernia. There is a massive fluid-filled within the abdomen. See the CT abdomen and pelvis dated 09/12/2024 for further discussion and differential diagnosis. IMPRESSION: 1. Small bilateral pleural effusions and adjacent lung consolidation is possibly mild compressive ate lectasis. 2. No lung nodules or mediastinal, hilar or axillary adenopathy. 3. No focal osseous lesions [facility], , 09/14/2024 3:45 PM
[2024-09-15 07:01] LABS: Basophils # (A) 0.08 10*3/uL (0.00-0.10); Basophils % (A) 0.9 %; Eosinophils # (A) 0.07 10*3/uL (0.04-0.35); Eosinophils % (A) 0.8 %; HGB 9.5 g/dL (12.0-15.0); Immature Platelet Fraction 4.5 % (1.1-6.1); Lymphocytes # (A) 2.49 10*3/uL (0.90-5.00); Lymphocytes % (A) 28.5 %; MCH 21.8 pg (27.0-32.0); MCHC 28.8 g/dL (32.0-37.0); MCV 75.9 fL (80.0-97.0); Monocytes # (A) 0.65 10*3/uL (0.20-1.00); Monocytes % (A) 7.4 %; Neutrophils # (A) 5.43 10*3/uL (1.80-7.70); Neutrophils % (A) 62.1 %; Platelet Count 144 10*3/uL (140-440); RBC 4.35 10*6/uL (4.10-5.20); WBC 8.75 10*3/uL (4.50-10.00)
[2024-09-15 07:12] LABS: African American GFR (CKD) 64 (>60 ml/min/1.73 sqM); Anion Gap 11 mmol/L; Blood Urea Nitrogen 19 mg/dL (7-17); Calcium 10.2 mg/dL (8.4-10.2); Carbon Dioxide 21 mmol/L (22-30); Chloride 104 mmol/L (98-107); Glucose 75 mg/dL (74-99); Non-African American GFR(CKD) 55 (>60 ml/min/1.73 sqM); Potassium 3.6 mmol/L (3.5-5.1); Sodium 136 mmol/L (137-145)
[2024-09-15 08:12] LABS: Anisocytosis (M) Present
--- NOTE | 2024-09-15 08:59 | P.PN ---
Subjective Progress Note Date: 09/15/24 Patient remains clinically unchanged. She shows no sign of GI bleed. On exam vital signs are stable. Abdomen soft. Cystic ovarian neoplasm. Patient will be worked up by [facility]. Objective - Vital Signs Vital signs: Vital Signs Temp 97.7 F 09/14/24 19:40 Pulse 97 09/15/24 07:48 Resp 14 09/15/24 07:48 BP 97/62 09/15/24 07:48 Pulse Ox 99 09/15/24 07:48 FiO2 Intake & Output 09/14/24 09/15/24 09/15/24 18:59 06:59 18:59 Intake Total 480 240 Output Total 350 Balance 130 240 Weight 49.895 kg Intake: Oral 480 240 Output: Urine 350 Other: Voiding Method Diaper Bedside Commode # Voids 2 - Labs CBC & Chem 7: 09/15/24 06:34 09/15/24 06:34 Labs: Abnormal Lab Results - Last 24 Hours (Table) 09/14/24 09/14/24 09/15/24 Range/Units 05:32 11:41 06:34 Hgb (12.0-15.0) g/dL Hct (37.2-46.3) % MCV (80.0-97.0) fL MCH (27.0-32.0) pg MCHC (32.0-37.0) g/dL Sodium 136 L (137-145) mmol/L Carbon Dioxide 21 L (22-30) mmol/L BUN 19 H (7-17) mg/dL CA 125 Antigen 61.6 H (0.0-30.1) U/mL Ur Leukocyte Esterase Moderate H (Negative) Urine WBC 22 H (0-5) /hpf Urine Bacteria Rare H (None) /hpf Urine Mucus Rare H (None) /hpf 09/15/24 Range/Units 06:34 Hgb 9.5 L (12.0-15.0) g/dL Hct 33.0 L (37.2-46.3) % MCV 75.9 L (80.0-97.0) fL MCH 21.8 L (27.0-32.0) pg MCHC 28.8 L (32.0-37.0) g/dL Sodium (137-145) mmol/L Carbon Dioxide (22-30) mmol/L BUN (7-17) mg/dL CA 125 Antigen (0.0-30.1) U/mL Ur Leukocyte Esterase (Negative) Urine WBC (0-5) /hpf Urine Bacteria (None) /hpf Urine Mucus (None) /hpf Microbiology - Last 24 Hours (Table) 09/13/24 13:25 Gram Stain - Preliminary Ascites Fluid Body Fluid Culture - Preliminary
--- NOTE | 2024-09-15 10:34 | P.PN ---
Subjective Progress Note Date: 09/15/24 Hospital Course: Patient is a 78 year old female with groin abscess presented to the ED with ab dominal pain. Patient reports having chronic abdominal pain as well as weakness. She reports that her abdominal discomfort has gotten progressively worse over the past few days. She states the pain is worse when she eats and along with bloating and palpitations. She experiences discomfort with solid foods but not with liquid diet, so she has tried to change her diet lately. Denies any blood loss in stools, black/dark stools, spotting. On a prior admission CT scan revealed 18 cm cystic structure in the pelvis concerning for a cystic ovarian mass. This was reviewed with the patient; she does not want this addressed while she is here, thus no further workup was done. Moreover, she mentions having a fall a year ago where she hit her head and was bleeding but did not get a medical evaluation at the time. She does not have a PCP. Denies fever, chills, shortness of breath, cough, chest pain, palpitations, nausea, vomiting, hematuria, dysuria, hematochezia, melena, headache, slurred speech, numbness, tingling, dizziness, lightheadedness, blurred vision, double vision. ED documentation reviewed. In the ED patient was treated with ondansetron, pantoprazole, 0.9 normal saline.Vitals on admission T 98.4 F, NM 114 bpm, RR 18, BP 114/72, SpO2 96% on room air.EKG independently interpreted as sinus rhythm, rate 99 bpm, QTc 294 ms. Abdomen/pelvis CT shows increasing size of large cystic structure with thin septations originating in the pelvis and extending into the lower abdomen conc erning for ovarian cystic neoplasm, no distinct enhancing mural nodularity identified this creates some mass effect upon the surrounding structures, no adenopathy identified. Resolution of previously demonstrated urinary bladder prolapse from prior exam. Small to moderate ascites throughout the abdomen and pelvis. Small bilateral pleural effusions with associated atelectasis Labs on admission show WBC 6.49, hemoglobin 3.5, hematocrit 13.7, MCV 62.3, platelet 156, PT 13.8, INR 1.3, APTT 20.7, sodium 135, potassium 3.7, BUN 24, creatinine 0.98, albumin 2.8 Admitted as inpatient for acute anemia requiring blood transfusion, oncology and general surgery on board. Received 3 units PRBC total, started on IV iron.She underwent diagnostic paracentesis on 09/13, peritoneal fluid shows lymphocytic predominance, no signs of SBP, SAAG 1.36 consistent with portal hypertension. Iron came back low 10, ferritin 26, B12 384, folate 7.2, low normal, will start 1 mg of folic acid daily. CT chest performed for staging, showed small bilateral pleural effusions, adjacent lung consolidation with possibly mild compressive atelectasis, no lung nodules, no mediastinal, hilar or axillary adenopathy, no focal osseous lesions. 09/15: Seen and examined at bedside, . She feels better and stronger, her abd omen is still distended. . Her blood pressure remains soft but stable, she is satting well on room air, heart rate in 60s. Hemoglobin 9.5 this morning, potassium 3.6, . Discussed with RN, patient does not feel strong enough to be discharged, PT OT consulted. Pertinent positives and negatives as discussed above, a complete review of systems was performed and all other systems are negative. Vitals Signs Reviewed. General: [nontoxic], [no distress], [appears at stated age] Derm: [warm], [dry] Head: [atraumatic], [normocephalic], [symmetric] Eyes: [EOMI], [no lid lag], [anicteric sclera] Mouth: [no lip lesion], [mucus membranes moist] Cardiovascular: [S1S2 reg], [no murmur] Lungs: [CTA bilateral], [no rhonchi, no rales] , [no accessory muscle use] Abdominal: Distended, mild generalized tenderness Ext: [no gross muscle atrophy], [left lower extremity edema, chronic, unchanged], [no contractures] Neuro: [ CN II-XI grossly intact], [no focal neuro deficits] Psych: [Alert], [oriented], [appropriate affect] Assessment and Plan: Severe symptomatic microcytic iron deficiency anemia -2 units PRBC given in the ED, 1 additional unit 09/13 -Anemia workup as above -IV iron daily with Ferrlecit 125 mg -Monitor CBC daily -Transfuse for Hb< 7 -Hematology oncology following Pelvic mass 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 Small to moderate ascites throughout the abdomen and pelvis. Small bilateral pleural effusions with associated atelectasis - S/p albumin 50 mL IV Q1H, 2 bags - Stop Lasix 20 mg IV Q12HR -age-adjusted BNP normal, ordered by admitting team -Continue telemetry monitoring -Monitor coagulation panel -General Surgery consulted, recommend follow-up with gynecology oncology -Heme-onc consulted, s/p paracentesis 09/13, fluid analysis as above, cytology pending - Nutrition consulted - CT chest above -PT OT consulted Hypokalemia resolved: Nausea and vomiting, resolved Continue Ondansetron 4 mg IVP Q8HR PRN DVT ppx: SCD Code status: Full code Anticipated discharge place: [facility] Anticipated discharge time: Medically stable for discharge, needs PT OT evaluation, possible placement Objective - Vital Signs Vital signs: Vital Signs Temp 97.7 F 09/14/24 19:40 Pulse 97 09/15/24 07:48 Resp 14 09/15/24 07:48 BP 97/62 09/15/24 07:48 Pulse Ox 99 09/15/24 07:48 FiO2 Intake & Output 09/14/24 09/15/24 09/15/24 18:59 06:59 18:59 Intake Total 480 240 Output Total 350 Balance 130 240 Weight 49.895 kg Intake: Oral 480 240 Output: Urine 350 Other: Voiding Method Diaper Bedside Commode Bedside Commode # Voids 2 - Labs CBC & Chem 7: 09/15/24 06:34 09/15/24 06:34 Labs: Abnormal Lab Results - Last 24 Hours (Table) 09/14/24 09/14/24 09/15/24 Range/Units 05:32 11:41 06:34 Hgb (12.0-15.0) g/dL Hct (37.2-46.3) % MCV (80.0-97.0) fL MCH (27.0-32.0) pg MCHC (32.0-37.0) g/dL Sodium 136 L (137-145) mmol/L Carbon Dioxide 21 L (22-30) mmol/L BUN 19 H (7-17) mg/dL CA 125 Antigen 61.6 H (0.0-30.1) U/mL Ur Leukocyte Esterase Moderate H (Negative) Urine WBC 22 H (0-5) /hpf Urine Bacteria Rare H (None) /hpf Urine Mucus Rare H (None) /hpf 09/15/24 Range/Units 06:34 Hgb 9.5 L (12.0-15.0) g/dL Hct 33.0 L (37.2-46.3) % MCV 75.9 L (80.0-97.0) fL MCH 21.8 L (27.0-32.0) pg MCHC 28.8 L (32.0-37.0) g/dL Sodium (137-145) mmol/L Carbon Dioxide (22-30) mmol/L BUN (7-17) mg/dL CA 125 Antigen (0.0-30.1) U/mL Ur Leukocyte Esterase (Negative) Urine WBC (0-5) /hpf Urine Bacteria (None) /hpf Urine Mucus (None) /hpf Microbiology - Last 24 Hours (Table) 09/13/24 13:25 Gram Stain - Preliminary Ascites Fluid Body Fluid Culture - Preliminary
[2024-09-15] MEDS: POTASSIUM CHLORIDE ER 20 MEQ TAB.ER PO SCH (15:58)
[2024-09-16 06:40] LABS: Basophils # (A) 0.04 10*3/uL (0.00-0.10); Basophils % (A) 0.6 %; Eosinophils # (A) 0.07 10*3/uL (0.04-0.35); HGB 8.5 g/dL (12.0-15.0); Lymphocytes # (A) 1.58 10*3/uL (0.90-5.00); Lymphocytes % (A) 22.4 %; MCH 22.1 pg (27.0-32.0); MCHC 29.3 g/dL (32.0-37.0); MCV 75.5 fL (80.0-97.0); Mean Platelet Volume 10.5 fL (9.5-12.2); Monocytes # (A) 0.61 10*3/uL (0.20-1.00); Monocytes % (A) 8.7 %; Neutrophils # (A) 4.71 10*3/uL (1.80-7.70); Neutrophils % (A) 66.9 %; Platelet Count 146 10*3/uL (140-440); RBC 3.84 10*6/uL (4.10-5.20); RDW 24.9 % (11.5-14.5); WBC 7.04 10*3/uL (4.50-10.00)
[2024-09-16 07:21] LABS: African American GFR (CKD) 76 (>60 ml/min/1.73 sqM); Anion Gap 8 mmol/L; Blood Urea Nitrogen 17 mg/dL (7-17); Calcium 9.8 mg/dL (8.4-10.2); Carbon Dioxide 24 mmol/L (22-30); Chloride 108 mmol/L (98-107); Glucose 86 mg/dL (74-99); Non-African American GFR(CKD) 66 (>60 ml/min/1.73 sqM); Potassium 3.8 mmol/L (3.5-5.1); Sodium 140 mmol/L (137-145)
--- NOTE | 2024-09-16 11:06 | P.PN ---
Subjective Progress Note Date: 09/16/24 SURGICAL PROGRESS NOTE CHIEF COMPLAINT: Cystic ovarian neoplasm HISTORY OF PRESENT ILLNESS: Patient presented with dizziness and anemia. Hemoglobin 3.5 on admission. Hemoglobin has come down from 9.5-8.5. Stool for occult blood is positive. She is status post paracentesis. Cytology pending. Patient seen and examined with Dr. Hidalgo PHYSICAL EXAM: VITAL SIGNS: Reviewed. GENERAL: Well-developed in no acute distress. ABDOMEN: Soft. Nondistended. NEUROLOGIC: Alert and oriented. Cranial nerves II through XII grossly intact. ASSESSMENT: 1. Cystic ovarian neoplasm 2. Anemia PLAN: - Patient scheduled for EGD and colonoscopy on to complete anemia workup - Recommend patient follows up with ADULT PAROLE OFFICER onc - Oncology service following Physician Bankman note has been reviewed by physician. Signing provider agrees with the documented findings, assessment, and plan of care. Objective - Vital Signs Vital signs: Vital Signs Temp 98.1 F 09/16/24 08:16 Pulse 92 09/16/24 08:16 Resp 16 09/16/24 08:16 BP 114/75 09/16/24 08:16 Pulse Ox 98 09/16/24 08:16 FiO2 Intake & Output 09/15/24 09/16/24 09/16/24 18:59 06:59 18:59 Intake Total 360 240 Balance 360 240 Intake: Oral 360 240 Other: Voiding Method Toilet Toilet Toilet Diaper Diaper # Voids 2 # Bowel Movements 1 - Labs CBC & Chem 7: 09/16/24 05:15 09/16/24 05:15 Labs: Abnormal Lab Results - Last 24 Hours (Table) 09/15/24 09/16/24 09/16/24 Range/Units 15:49 05:15 05:15 RBC 3.84 L (4.10-5.20) 10*6/uL Hgb 8.5 L (12.0-15.0) g/dL Hct 29.0 L (37.2-46.3) % MCV 75.5 L (80.0-97.0) fL MCH 22.1 L (27.0-32.0) pg MCHC 29.3 L (32.0-37.0) g/dL Chloride 108 H (98-107) mmol/L Stool Occult Blood Positive H (Negative) Microbiology - Last 24 Hours (Table) 09/13/24 13:25 Gram Stain - Preliminary Ascites Fluid Body Fluid Culture - Preliminary 09/13/24 13:25 Anaerobic Culture - Preliminary Ascites Fluid
--- NOTE | 2024-09-16 15:03 | P.PN ---
Subjective Progress Note Date: 09/16/24 Patient was seen and examined. No specific complaints. Stool occult + plans for EGD/C-scope on . CBC and BMP significant for RBC 3.84, Hg 8.5, Hct 29, MCV 97.5, Cl 108. General: non toxic, no distress, appears at stated age Derm: warm, dry Head: atraumatic, normocephalic, symmetric Eyes: EOMI, no lid lag, anicteric sclera Mouth: no lip lesion, mucus membranes moist Cardiovascular: S1S2 tachy, no murmur Lungs: Decreased BS bilateral, no rhonchi, no rales , no accessory muscle use Ext: no gross muscle atrophy, no edema, no contractures Neuro: no focal neuro deficits Psych: Alert, oriented, appropriate affect Based on my assessment of this patient, this patient meets a high complexity level of care. Iron def anemia: Status post 3 unit PRBC. Fe 12, % sat 3.04, Ferritin 26.3. Continue IV iron. Repeat CBC in the AM. Transfuse if Hg < 7. Hematology on board. Stool occult +: Plans for EGD/C-scope on . Pelvic mass: CA 125 61.6. Concern for ovarian malignancy. Follow paracentesis cytology. Outpatient Gyne-Onc evaluation. Protein calorie malnutrition: Dietitian consulted. Moderate ascites: Status post IV lasix. Status post IV albumin. Recommend high protein diet. Coagulopathy: Unknown etiology. Repeat coag panel in the AM. Bilateral pleural effusion likely due to ascites status post IV lasix and albumin. Resolved: Hypokalemia, Nausea and vomiting CODE STATUS: FULL CODE DVT Prophylaxis: SCD GI Prophylaxis: Protonix IV Designated medical POA if patient is not able to make medical decisions for themselves: I have reviewed the following business intelligence consultant notes: Surgery. I have reviewed the results of the following tests: CBC, BMP I have ordered the following tests: CBC, Coag panel I have discussed the care of this patient with the following independent historian: I have independently interpreted the following test below: I have discussed the management of this patient with the following physician: Objective - Vital Signs Vital signs: Vital Signs Temp 98.1 F 09/16/24 11:01 Pulse 93 09/16/24 13:37 Resp 16 09/16/24 11:01 BP 125/85 09/16/24 11:01 Pulse Ox 99 09/16/24 11:01 FiO2 Intake & Output 09/15/24 09/16/24 09/16/24 18:59 06:59 18:59 Intake Total 360 462 Balance 360 462 Intake: Oral 360 462 Other: Voiding Method Toilet Toilet Toilet Diaper # Voids 2 # Bowel Movements 1 - Labs CBC & Chem 7: 09/16/24 05:15 09/16/24 05:15 Labs: Abnormal Lab Results - Last 24 Hours (Table) 09/15/24 09/16/24 09/16/24 Range/Units 15:49 05:15 05:15 RBC 3.84 L (4.10-5.20) 10*6/uL Hgb 8.5 L (12.0-15.0) g/dL Hct 29.0 L (37.2-46.3) % MCV 75.5 L (80.0-97.0) fL MCH 22.1 L (27.0-32.0) pg MCHC 29.3 L (32.0-37.0) g/dL Chloride 108 H (98-107) mmol/L Stool Occult Blood Positive H (Negative) Microbiology - Last 24 Hours (Table) 09/13/24 13:25 Gram Stain - Preliminary Ascites Fluid Body Fluid Culture - Preliminary 09/13/24 13:25 Anaerobic Culture - Preliminary Ascites Fluid
--- NOTE | 2024-09-16 18:15 | P.PN ---
Subjective Progress Note Date: 09/16/24 No acute events overnight. Denies episodes of acute bleeding. Hgb today 8.5. Plan for scopes this Objective - Vital Signs Vital signs: Vital Signs Temp 97.9 F 09/16/24 15:55 Pulse 81 09/16/24 15:55 Resp 14 09/16/24 15:55 BP 105/72 09/16/24 15:55 Pulse Ox 97 09/16/24 15:55 FiO2 Intake & Output 09/15/24 09/16/24 09/16/24 18:59 06:59 18:59 Intake Total 360 462 Balance 360 462 Intake: Oral 360 462 Other: Voiding Method Toilet Toilet Toilet Diaper # Voids 2 # Bowel Movements 1 - Constitutional General appearance: Present: no acute distress, thin - EENT Eyes: Present: anicteric sclerae, EOMI ENT: Present: hearing grossly normal - Respiratory Details: breathing is even and unlabored - Cardiovascular Details: skin warm and dry - Integumentary Integumentary: Absent: cyanotic, jaundiced - Psychiatric Psychiatric: Present: A&O x's 3 - Labs CBC & Chem 7: 09/16/24 05:15 09/16/24 05:15 Labs: Abnormal Lab Results - Last 24 Hours (Table) 09/15/24 09/16/24 09/16/24 Range/Units 15:49 05:15 05:15 RBC 3.84 L (4.10-5.20) 10*6/uL Hgb 8.5 L (12.0-15.0) g/dL Hct 29.0 L (37.2-46.3) % MCV 75.5 L (80.0-97.0) fL MCH 22.1 L (27.0-32.0) pg MCHC 29.3 L (32.0-37.0) g/dL Chloride 108 H (98-107) mmol/L Stool Occult Blood Positive H (Negative) Microbiology - Last 24 Hours (Table) 09/13/24 13:25 Gram Stain - Preliminary Ascites Fluid Body Fluid Culture - Preliminary Assessment and Plan (1) Ovarian mass Current Visit: Yes Status: Acute Priority: High Code(s): N83.8 - OTH NONINFLAMMATORY DISORD OF OVARY, FALLOP AND BROAD LIGMT SNOMED Code(s): 151732878 (2) Symptomatic anemia Current Visit: Yes Status: Acute Priority: High Code(s): D64.9 - ANEMIA, UNSPECIFIED SNOMED Code(s): 693834662 Plan: Ovarian mass: Presented to emergency room with complaints of abdominal bloating/pressure and weakness. -CT abdomen pelvis was obtained showing increasing size of large cystic st ructure with thin septations originating in the pelvis and extending to the lower abdomen, grossly measuring 12.7 x 21.1 x 18.6 cm. Small to moderate ascites throughout the abdomen and pelvis. Mass was noted in previous CT in 11/2023, but pt has not followed up for the same. -S/p paracentesis, 220 mL removed, cytology pending -CT chest negative for metastatic disease -CA-125 elevated at 61.6 -Pt will need evaluation by Boat [facility] onc. She stated she would be amendable to f/u in [place] but does not want to travel to [place], this will be arranged upon discharge Discussed findings and concerns for malignancy. She was agreeable to proceed with further workup. All questions and concerns were addressed Microcytic anemia: -Upon admit hemoglobin noted at 3.5, MCV 62.5, platelets 156,000. -S/p 3 units PRBCs since admit - Folate 7.2, vitamin B12 384, iron saturation 3.0%, ferritin 26.3. IV iron has been started. -General surgery consulted, plan for EGD/colonoscopy -Continue to monitor CBC. Transfuse for hgb <7 or if symptomatic
[2024-09-17 08:41] LABS: HCT 30.5 % (37.2-46.3); HGB 8.9 g/dL (12.0-15.0); Immature Platelet Fraction 3.1 % (1.1-6.1); MCH 22.5 pg (27.0-32.0); MCHC 29.2 g/dL (32.0-37.0); MCV 77.2 fL (80.0-97.0); Mean Platelet Volume 10.3 fL (9.5-12.2); Platelet Count 155 10*3/uL (140-440); RBC 3.95 10*6/uL (4.10-5.20); WBC 6.33 10*3/uL (4.50-10.00)
[2024-09-17 08:48] LABS: RDW 26.4 % (11.5-14.5)
[2024-09-17 09:16] LABS: INR 1.1 (<1.2); Partial Thromboplastin Time 30.7 sec (22.0-30.0); Prothrombin Time 12.4 sec (10.0-12.5)
--- NOTE | 2024-09-17 11:01 | CA ---
Transthoracic Echo Report Name: Stephanie Milner Age: 78 Gender: F : 1945 Exam Date: 09/16/2024 13:17 Exam Location: [facility] Ht (in): 62 Wt (lb): 110 Ordering Physician: Karel Lara MD Attending/Referring Phys: Assignment Clerk Cheryl Baxter RDCS Procedure CPT: Indications: lower extremity edema Cardiac Hx: Technical Quality: Fair Contrast 1: Total Dose (mL): Contrast 2: Total Dose (mL): MEASUREMENTS (Male / Female) Normal Values 2D ECHO LV Diastolic Diameter PLAX 5.1 cm 4.2 - 5.9 / 3.9 - 5.3 cm LV Systolic Diameter PLAX 2.2 cm IVS Diastolic Thickness 1.1 cm 0.6 - 1.0 / 0.6 - 0.9 cm LVPW Diastolic Thickness 1.1 cm 0.6 - 1.0 / 0.6 - 0.9 cm LV Relative Wall Thickness 0.4 RV Internal Dim ED PLAX 1.5 cm LA Systolic Diameter LX 3.7 cm 3.0 - 4.0 / 2.7 - 3.8 cm LV Diastolic Volume MOD BP 53.4 cm??? 67 - 155 / 56 - 104 cm??? LV Systolic Volume MOD BP 14.5 cm??? 22 - 58 / 19 - 49 cm??? LV Ejection Fraction MOD BP 72.8 % >= 55 % LV Cardiac Index MOD BP 2240.7 cm???/min???m??? LV Diastolic Volume MOD 4C 61.4 cm??? LV Systolic Volume MOD 4C 19.0 cm??? LV Ejection Fraction MOD 4C 69.0 % LV Cardiac Index MOD 4C 2438.1 cm???/min???m??? LV Diastolic Length 4C 7.0 cm LV Systolic Length 4C 4.8 cm LV Diastolic Volume MOD 2C 35.4 cm??? LV Systolic Volume MOD 2C 10.7 cm??? LV Ejection Fraction MOD 2C 69.7 % LV Cardiac Index MOD 2C 1422.3 cm???/min???m??? LV Diastolic Length 2C 5.2 cm LV Systolic Length 2C 4.5 cm LA Volume 48.3 cm??? 18 - 58 / 22 - 52 cm??? LA Volume Index 32.7 cm???/m??? 16 - 28 cm???/m??? M-MODE Aortic Root Diameter MM 3.2 cm LA Systolic Diameter MM 3.7 cm LA Ao Ratio MM 1.2 AV Cusp Separation MM 2.3 cm DOPPLER MV Area PHT 3.3 cm??? Mitral E Point Velocity 104.0 cm/s Mitral A Point Velocity 72.2 cm/s Mitral E to A Ratio 1.4 MV Deceleration Time 229.6 ms TR Peak Velocity 247.8 cm/s TR Peak Gradient 24.6 mmHg FINDINGS Left Ventricle Left ventricular ejection fraction is estimated at 55-60 %. Mildly increased septal wall thickness. Mildly increased posterior wall thickness. Normal left ventricular systolic function with no obvious regional wall motion abnormalities. Left ventricular wall thickness normal. Right Ventricle Mild right ventricular dilatation. Right Atrium Mild right atrial dilatation. Left Atrium Moderate left atrial dilatation. Mitral Valve Myxomatous (redundant) mitral valve. Severe prolapse of the posterior mitral valve leaflet. Severe mitral regurgitation. Anteriorly directed mitral regurgitation jet. Aortic Valve Trileaflet aortic valve. No aortic stenosis. Mild aortic regurgitation. Tricuspid Valve Myxomatous (redundant) tricuspid valve. Moderate tricuspid regurgitation. No tricuspid stenosis. Pulmonic Valve Structurally normal pulmonic valve. Trace pulmonic regurgitation. No pulmonic stenosis. Pericardium Minimal to small pericardial effusion . Left pleural effusion. Aorta Normal size aortic root and proximal ascending aorta. CONCLUSIONS Normal LV size and systolic function. Mild right ventricular enlargement. Moderate left atrial enlargement of posterior mitral leaflet with eccentric anterior mitral regurgitation of a severe degree. Redundant mitral valve and tricuspid valve leaflets. Moderate tricuspid regurgitation. Small to minimal pericardial effusion, left-sided pleural effusion noted. Previewed by: Dr. Diana Crenshaw MD (Electronically Signed) Final Date: 17 September 2024 11:01
--- NOTE | 2024-09-17 11:18 | P.PN ---
Subjective Progress Note Date: 09/17/24 SURGICAL PROGRESS NOTE CHIEF COMPLAINT: Cystic ovarian neoplasm HISTORY OF PRESENT ILLNESS: Patient presented with dizziness and anemia. Hemoglobin 3.5 on admission. Hgb stable 8.9. Status post paracentesis and fluid culture shows no growth. Patient seen and examined with Dr. Hidalgo PHYSICAL EXAM: VITAL SIGNS: Reviewed. GENERAL: Well-developed in no acute distress. ABDOMEN: Soft. Nondistended. NEUROLOGIC: Alert and oriented. Cranial nerves II through XII grossly intact. ASSESSMENT: 1. Cystic ovarian neoplasm 2. Anemia PLAN: - Patient scheduled for EGD and colonoscopy on to complete anemia workup - Start GoLytely bowel prep tomorrow - Recommend patient follows up with MONITORING ANALYST onc - Oncology service following Physician Machine Shop Repair Technician note has been reviewed by physician. Signing provider agrees with the documented findings, assessment, and plan of care. Objective - Vital Signs Vital signs: Vital Signs Temp 97.8 F 09/17/24 08:00 Pulse 78 09/17/24 08:00 Resp 18 09/17/24 08:00 BP 103/65 09/17/24 08:00 Pulse Ox 100 09/17/24 08:00 FiO2 Intake & Output 09/16/24 09/17/24 09/17/24 18:59 06:59 18:59 Intake Total 462 10 Balance 462 10 Intake: IV 10 Invasive Line 4 10 Oral 462 Other: Voiding Method Toilet Toilet Toilet # Voids 2 2 1 # Bowel Movements 1 - Labs CBC & Chem 7: 09/17/24 08:18 09/16/24 05:15 Labs: Abnormal Lab Results - Last 24 Hours (Table) 09/17/24 09/17/24 Range/Units 08:18 08:18 RBC 3.95 L (4.10-5.20) 10*6/uL Hgb 8.9 L (12.0-15.0) g/dL Hct 30.5 L (37.2-46.3) % MCV 77.2 L (80.0-97.0) fL MCH 22.5 L (27.0-32.0) pg MCHC 29.2 L (32.0-37.0) g/dL RDW 26.4 H (11.5-14.5) % APTT 30.7 H (22.0-30.0) sec Microbiology - Last 24 Hours (Table) 09/13/24 13:25 Gram Stain - Final Ascites Fluid Body Fluid Culture - Final
--- NOTE | 2024-09-17 11:44 | P.PN ---
Subjective Progress Note Date: 09/17/24 Patient was seen and examined. No specific complaints. Stool occult + plans for EGD/C-scope on . CBC and Coag panel significant for RBC 3.95, Hg 8.9, Hct 30.5, MCV 77.2, APTT30.7. General: non toxic, no distress, appears at stated age Derm: warm, dry Head: atraumatic, normocephalic, symmetric Eyes: EOMI, no lid lag, anicteric sclera Mouth: no lip lesion, mucus membranes moist Cardiovascular: good distal perfusion in all 4 extremities Lungs: breathing comfortably, no accessory muscle use Ext: no gross muscle atrophy, no edema, no contractures Neuro: no focal neuro deficits Psych: Alert, oriented, appropriate affect Based on my assessment of this patient, this patient meets a high complexity level of care. Iron def anemia: Status post 3 unit PRBC. Fe 12, % sat 3.04, Ferritin 26.3. Cont inue IV iron. Repeat CBC in the AM. Transfuse if Hg < 7. Hematology on board. Stool occult +: Plans for EGD/C-scope on . Pelvic mass: CA 125 61.6. Concern for ovarian malignancy. Follow paracentesis cytology. Outpatient Gyne-Onc evaluation. Protein calorie malnutrition: Dietitian consulted. Moderate ascites: Status post IV lasix. Status post IV albumin. Recommend high protein diet. Bilateral pleural effusion likely due to ascites status post IV lasix and albumin. Resolved: Hypokalemia, Nausea and vomiting, Coagulopathy CODE STATUS: FULL CODE DVT Prophylaxis: SCD GI Prophylaxis: Protonix IV Designated medical POA if patient is not able to make medical decisions for themselves: I have reviewed the following web consultant notes: Surgery. I have reviewed the results of the following tests: CBC, Coag. I have ordered the following tests: I have discussed the care of this patient with the following independent historian: I have independently interpreted the following test below: I have discussed the management of this patient with the following physician: Objective - Vital Signs Vital signs: Vital Signs Temp 97.8 F 09/17/24 08:00 Pulse 78 09/17/24 08:00 Resp 18 09/17/24 08:00 BP 103/65 09/17/24 08:00 Pulse Ox 100 09/17/24 08:00 FiO2 Intake & Output 09/16/24 09/17/24 09/17/24 18:59 06:59 18:59 Intake Total 462 10 Balance 462 10 Intake: IV 10 Invasive Line 4 10 Oral 462 Other: Voiding Method Toilet Toilet Toilet # Voids 2 2 1 # Bowel Movements 1 - Labs CBC & Chem 7: 09/17/24 08:18 09/16/24 05:15 Labs: Abnormal Lab Results - Last 24 Hours (Table) 09/17/24 09/17/24 Range/Units 08:18 08:18 RBC 3.95 L (4.10-5.20) 10*6/uL Hgb 8.9 L (12.0-15.0) g/dL Hct 30.5 L (37.2-46.3) % MCV 77.2 L (80.0-97.0) fL MCH 22.5 L (27.0-32.0) pg MCHC 29.2 L (32.0-37.0) g/dL RDW 26.4 H (11.5-14.5) % APTT 30.7 H (22.0-30.0) sec Microbiology - Last 24 Hours (Table) 09/13/24 13:25 Gram Stain - Final Ascites Fluid Body Fluid Culture - Final
[2024-09-18] MEDS: PEG 3350 (236 GM/BTL) + LYTES 4,000 ML BOTTLE PO ONE (08:20)
[2024-09-18 11:09] LABS: HGB 9.1 g/dL (12.0-15.0); Immature Platelet Fraction 3.4 % (1.1-6.1); MCH 22.6 pg (27.0-32.0); MCHC 28.4 g/dL (32.0-37.0); MCV 79.4 fL (80.0-97.0); Mean Platelet Volume 10.4 fL (9.5-12.2); Platelet Count 155 10*3/uL (140-440); RBC 4.03 10*6/uL (4.10-5.20); WBC 5.03 10*3/uL (4.50-10.00)
[2024-09-18 11:11] LABS: RDW 27.5 % (11.5-14.5)
--- NOTE | 2024-09-18 11:13 | P.PN ---
Subjective Progress Note Date: 09/18/24 SURGICAL PROGRESS NOTE CHIEF COMPLAINT: Cystic ovarian neoplasm HISTORY OF PRESENT ILLNESS: Patient presented with dizziness and anemia. Hemoglobin 3.5 on admission. hgb stable 9.1 Patient seen and examined with Dr. Hidalgo PHYSICAL EXAM: VITAL SIGNS: Reviewed. GENERAL: Well-developed in no acute distress. ABDOMEN: Soft. Nondistended. NEUROLOGIC: Alert and oriented. Cranial nerves II through XII grossly intact. ASSESSMENT: 1. Cystic ovarian neoplasm 2. Anemia PLAN: - Patient scheduled for EGD and colonoscopy tomorrow with Dr. Hidalgo - Clear liquid diet today - Start GoLytely bowel prep - N.p.o. after midnight - Recommend patient follows up with [facility] onc - Oncology service following Physician Emblem Fuser Tender note has been reviewed by physician. Signing provider agrees with the documented findings, assessment, and plan of care. Objective - Vital Signs Vital signs: Vital Signs Temp 97.1 F L 09/18/24 07:08 Pulse 77 09/18/24 08:00 Resp 16 09/18/24 08:00 BP 117/73 09/18/24 07:08 Pulse Ox 98 09/18/24 07:08 FiO2 Intake & Output 09/17/24 09/18/24 09/18/24 18:59 06:59 18:59 Intake Total 100 Balance 100 Intake: Intake, IV Titration 100 Amount Sodium Ferric Gluconat- 100 Sucrose 125 mg In Sodium Chloride 0.9% 100 ml @ 100 mls/hr IVPB DAILY [facility] Rx#:[id number] Other: Voiding Method Toilet Toilet Toilet Diaper # Voids 1 1 # Bowel Movements 1 - Labs CBC & Chem 7: 09/18/24 10:00 09/16/24 05:15 Labs: Abnormal Lab Results - Last 24 Hours (Table) 09/18/24 Range/Units 10:00 RBC 4.03 L (4.10-5.20) 10*6/uL Hgb 9.1 L (12.0-15.0) g/dL Hct 32.0 L (37.2-46.3) % MCV 79.4 L (80.0-97.0) fL MCH 22.6 L (27.0-32.0) pg MCHC 28.4 L (32.0-37.0) g/dL RDW 27.5 H (11.5-14.5) % Microbiology - Last 24 Hours (Table) 09/13/24 13:25 Anaerobic Culture - Final Ascites Fluid 09/13/24 13:25 Gram Stain - Final Ascites Fluid Body Fluid Culture - Final
--- NOTE | 2024-09-18 13:39 | P.PN ---
Subjective Progress Note Date: 09/18/24 Patient was seen and examined. No specific complaints. Stool occult + plans for EGD/C-scope on . CBC and Coag panel significant for RBC 4.03, Hg 9.1, Hct 32, MCV 79.4. General: non toxic, no distress, appears at stated age Derm: warm, dry Head: atraumatic, normocephalic, symmetric Eyes: EOMI, no lid lag, anicteric sclera Mouth: no lip lesion, mucus membranes moist Cardiovascular: good distal perfusion in all 4 extremities Lungs: breathing comfortably, no accessory muscle use Ext: no gross muscle atrophy, no edema, no contractures Neuro: no focal neuro deficits Psych: Alert, oriented, appropriate affect Based on my assessment of this patient, this patient meets a high complexity level of care. Iron def anemia: Status post 3 unit PRBC. Fe 12, % sat 3.04, Ferritin 26.3. Continue IV iron. Repeat CBC in the AM. Transfuse if Hg < 7. Hematology on board. Stool occult +: Plans for EGD/C-scope on . Pelvic mass: CA 125 61.6. Concern for ovarian malignancy. Follow paracentesis cytology. Outpatient Gyne-Onc evaluation. Protein calorie malnutrition: Dietitian consulted. Moderate ascites: Status post IV lasix. Status post IV albumin. Recommend high protein diet. Bilateral pleural effusion likely due to ascites status post IV lasix and albumin. Resolved: Hypokalemia, Nausea and vomiting, Coagulopathy CODE STATUS: FULL CODE DVT Prophylaxis: SCD GI Prophylaxis: Protonix IV Designated medical POA if patient is not able to make medical decisions for themselves: I have reviewed the following microsoft bi consultant notes: Surgery. I have reviewed the results of the following tests: CBC I have ordered the following tests: I have discussed the care of this patient with the following independent historian: I have independently interpreted the following test below: I have discussed the management of this patient with the following physician: Objective - Vital Signs Vital signs: Vital Signs Temp 97.6 F 09/18/24 12:24 Pulse 76 09/18/24 12:24 Resp 20 09/18/24 12:24 BP 125/77 09/18/24 12:24 Pulse Ox 98 09/18/24 12:24 FiO2 Intake & Output 09/17/24 09/18/24 09/18/24 18:59 06:59 18:59 Intake Total 100 Balance 100 Weight 49.895 kg Intake: Intake, IV Titration 100 Amount Sodium Ferric Gluconat- 100 Sucrose 125 mg In Sodium Chloride 0.9% 100 ml @ 100 mls/hr IVPB DAILY [facility] Rx#:[id number] Other: Voiding Method Toilet Toilet Toilet Diaper # Voids 1 1 # Bowel Movements 1 - Labs CBC & Chem 7: 09/18/24 10:00 09/16/24 05:15 Labs: Abnormal Lab Results - Last 24 Hours (Table) 09/18/24 Range/Units 10:00 RBC 4.03 L (4.10-5.20) 10*6/uL Hgb 9.1 L (12.0-15.0) g/dL Hct 32.0 L (37.2-46.3) % MCV 79.4 L (80.0-97.0) fL MCH 22.6 L (27.0-32.0) pg MCHC 28.4 L (32.0-37.0) g/dL RDW 27.5 H (11.5-14.5) % Microbiology - Last 24 Hours (Table) 09/13/24 13:25 Anaerobic Culture - Final Ascites Fluid
[2024-09-19 06:47] LABS: HCT 31.2 % (37.2-46.3); Immature Platelet Fraction 2.8 % (1.1-6.1); MCH 22.7 pg (27.0-32.0); MCHC 28.8 g/dL (32.0-37.0); MCV 78.8 fL (80.0-97.0); Mean Platelet Volume 10.2 fL (9.5-12.2); Platelet Count 165 10*3/uL (140-440); RBC 3.96 10*6/uL (4.10-5.20); WBC 4.98 10*3/uL (4.50-10.00)
[2024-09-19 06:57] LABS: African American GFR (CKD) >90 (>60 ml/min/1.73 sqM); Anion Gap 4 mmol/L; Blood Urea Nitrogen 12 mg/dL (7-17); Calcium 9.3 mg/dL (8.4-10.2); Carbon Dioxide 25 mmol/L (22-30); Chloride 109 mmol/L (98-107); Glucose 93 mg/dL (74-99); Non-African American GFR(CKD) 84 (>60 ml/min/1.73 sqM); Sodium 138 mmol/L (137-145)
[2024-09-19 07:15] LABS: RDW 27.9 % (11.5-14.5)
[2024-09-19 07:18] VITALS: BP 122/76; PULSE 65; RESP 20; TEMP 97.7
--- NOTE | 2024-09-19 10:23 | P.DS ---
Providers Date of admission: 09/12/24 23:25 Expected date of discharge: 09/19/24 Attending physician: Karel Lara MD Consults: 09/12/24 23:25 Consult Physician Routine Consulting Provider: Joseph Hidalgo Consult Reason/Comments: ovarian mass Do you want consulting provider notified?: Yes Consult Physician Routine Consulting Provider: Michel Diego Consult Reason/Comments: ovarian mass Do you want consulting provider notified?: Yes Primary care physician: Stated None Hospital Course: Patient is a 78 year old female with groin abscess presented to the ED with abdominal pain. Patient reports having chronic abdominal pain as well as weakness. She reports that her abdominal discomfort has gotten progressively worse over the past few days. She states the pain is worse when she eats and along with bloating and palpitations. She experiences discomfort with solid foods but not with liquid diet, so she has tried to change her diet lately. Denies any blood loss in stools, black/dark stools, spotting. On a prior admission CT scan revealed 18 cm cystic structure in the pelvis concerning for a cystic ovarian mass. This was reviewed with the patient; she does not want this addressed while she is here, thus no further workup was done. Moreover, she mentions having a fall a year ago where she hit her head and was bleeding but did not get a medical evaluation at the time. She does not have a PCP. Denies fever, chills, shortness of breath, cough, chest pain, palpitations, nausea, vomiting, hematuria, dysuria, hematochezia, melena, headache, slurred speech, numbness, tingling, dizziness, lightheadedness, blurred vision, double vision. ED documentation reviewed. In the ED patient was treated with ondansetron, pantoprazole, 0.9 normal saline. Vitals on admission T 98.4 F, ID 114 bpm, RR 18, BP 114/72, SpO2 96% on room air EKG independently interpreted as sinus rhythm, rate 99 bpm, QTc 294 ms Abdomen/pelvis CT shows increasing size of large cystic structure with thin septations originating in the pelvis and extending into the lower abdomen concerning for ovarian cystic neoplasm, no distinct enhancing mural nodularity identified this creates some mass effect upon the surrounding structures, no adenopathy identified. Resolution of previously demonstrated urinary bladder prolapse from prior exam. Small to moderate ascites throughout the abdomen and pelvis. Small bilateral pleural effusions with associated atelectasis Labs on admission show WBC 6.49, hemoglobin 3.5, hematocrit 13.7, MCV 62.3, platelet 156, PT 13.8, INR 1.3, APTT 20.7, sodium 135, potassium 3.7, BUN 24, creatinine 0.98, albumin 2.8 Transfused 3 unit PRBC. Stool occult +, initial plans for EGD/C-scope on 09/19 but patient refused. Hemoglobin remaining stable. Heme-Onc consulted for pelvic mass recommending outpatient Gyne-Onc follow up. Paracentesis performed, negative for malignancy. CT chest showed small bilateral pleural effusions with atelectasis. 09/19 Patient was seen and examined. No specific complaints. Refusing EGD/C- scope. CBC shows Hg 9. Discharge Plan: Follow up with PCP within 1-2 days of discharge. Follow up with Gyne-Onc within 1 week of discharge for workup of pelvic mass. General: non toxic, no distress, appears at stated age Derm: warm, dry Head: atraumatic, normocephalic, symmetric Eyes: EOMI, no lid lag, anicteric sclera Mouth: no lip lesion, mucus membranes moist Cardiovascular: S1 S2 reg. Lungs: Clear to auscultation BL, no accessory muscle use Ext: no gross muscle atrophy, no edema, no contractures Neuro: no focal neuro deficits Psych: Alert, oriented, appropriate affect Discharge Diagnosis: Iron def anemia Stool occult + Pelvic mass Protein calorie malnutrition Moderate ascites Bilateral pleural effusion likely due to ascites status post IV lasix and albumin. Resolved: Hypokalemia, Nausea and vomiting, Coagulopathy This complex discharge took 35 minutes to complete. Patient Condition at Discharge: Stable Plan - Discharge Summary Discharge Rx Participant: Yes New Discharge Prescriptions: New Ferrous Sulfate [Feosol] 325 mg PO DAILY #30 tab Folic Acid 1 mg PO DAILY tab Discontinued Aspirin 650 mg PO BID Discharge Medication List Ferrous Sulfate [Feosol] 325 mg PO DAILY #30 tab 09/19/24 [Rx] Folic Acid 1 mg PO DAILY tab 09/19/24 [Rx] Follow up Appointment(s)/Referral(s): None,Stated [Primary Care Provider] - 1-2 days [facility], [NON-STAFF] - 1 Week Selvin Mclaughlin MD [REFERRING] - 1 Week Discharge Disposition: TRANSFER TO SNF/ECF
--- NOTE | 2024-09-19 13:32 | P.PN ---
Subjective Progress Note Date: 09/19/24 SURGICAL PROGRESS NOTE CHIEF COMPLAINT: Cystic ovarian neoplasm HISTORY OF PRESENT ILLNESS: Patient refused EGD and colonoscopy for today. They are planning on discharging her to [facility] for rehab. Patient plans to follow-up with [facility] [employer] [facility] service outpatient. Hemoglobin stable at 9.0 Patient seen and examined with Dr. Hidalgo PHYSICAL EXAM: VITAL SIGNS: Reviewed. GENERAL: Well-developed in no acute distress. ABDOMEN: Soft. Nondistended. NEUROLOGIC: Alert and oriented. Cranial nerves II through XII grossly intact. ASSESSMENT: 1. Cystic ovarian neoplasm 2. Anemia PLAN: -Patient refused EGD and colonoscopy for today. Agree with discharge planning. -Patient can have EGD and colonoscopy completed outpatient -Agree with following up with [facility] services Physician Needle Board Repairer note has been reviewed by physician. Signing provider agrees with the documented findings, assessment, and plan of care. Objective - Vital Signs Vital signs: Vital Signs Temp 97.7 F 09/19/24 07:03 Pulse 65 09/19/24 07:03 Resp 20 09/19/24 07:03 BP 122/76 09/19/24 07:03 Pulse Ox 99 09/19/24 07:03 FiO2 Intake & Output 09/18/24 09/19/24 09/19/24 18:59 06:59 18:59 Intake Total 1160 Output Total 50 Balance 1160 -50 Weight 49.895 kg Intake: Oral 1160 Output: Urine 50 Straight 50 Other: Voiding Method Toilet Toilet Toilet Diaper Diaper # Voids 4 0 # Bowel Movements 1 - Labs CBC & Chem 7: 09/19/24 06:27 09/19/24 06:27 Labs: Abnormal Lab Results - Last 24 Hours (Table) 09/19/24 09/19/24 Range/Units 06:27 06:27 RBC 3.96 L (4.10-5.20) 10*6/uL Hgb 9.0 L (12.0-15.0) g/dL Hct 31.2 L (37.2-46.3) % MCV 78.8 L (80.0-97.0) fL MCH 22.7 L (27.0-32.0) pg MCHC 28.8 L (32.0-37.0) g/dL RDW 27.9 H (11.5-14.5) % Chloride 109 H (98-107) mmol/L
--- NOTE | 2024-09-19 18:58 | P.PN ---
Subjective Progress Note Date: 09/19/24 No acute events overnight. Denies episodes of acute bleeding. Hgb today 9.0. Pt declined scopes today, plan for outpt f/u. Plan for rehab upon discharge. 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 [place] Objective - Vital Signs Vital signs: Vital Signs Temp 97.7 F 09/19/24 07:03 Pulse 65 09/19/24 07:03 Resp 20 09/19/24 07:03 BP 122/76 09/19/24 07:03 Pulse Ox 99 09/19/24 07:03 FiO2 Intake & Output 09/18/24 09/19/24 09/19/24 18:59 06:59 18:59 Intake Total 1160 Output Total 50 Balance 1160 -50 Weight 49.895 kg Intake: Oral 1160 Output: Urine 50 Straight 50 Other: Voiding Method Toilet Toilet Toilet Diaper Diaper # Voids 4 0 # Bowel Movements 1 - Labs CBC & Chem 7: 09/19/24 06:27 09/19/24 06:27 Labs: Abnormal Lab Results - Last 24 Hours (Table) 09/19/24 09/19/24 Range/Units 06:27 06:27 RBC 3.96 L (4.10-5.20) 10*6/uL Hgb 9.0 L (12.0-15.0) g/dL Hct 31.2 L (37.2-46.3) % MCV 78.8 L (80.0-97.0) fL MCH 22.7 L (27.0-32.0) pg MCHC 28.8 L (32.0-37.0) g/dL RDW 27.9 H (11.5-14.5) % Chloride 109 H (98-107) mmol/L Assessment and Plan (1) Ovarian mass Status: Acute Priority: High Code(s): N83.8 - OTH NONINFLAMMATORY DISORD OF OVARY, FALLOP AND BROAD LIGMT SNOMED Code(s): 871528448 (2) Symptomatic anemia Status: Acute Priority: High Code(s): D64.9 - ANEMIA, UNSPECIFIED SNOMED Code(s): 183641412 Plan: Ovarian mass: Presented to emergency room with complaints of abdominal bloating/pressure and weakness. -CT abdomen pelvis was obtained showing increasing size of large cystic structure with thin septations originating in the pelvis and extending to the lower abdomen, grossly measuring 12.7 x 21.1 x 18.6 cm. Small to moderate ascites throughout the abdomen and pelvis. Mass was noted in previous CT in 11/2023, but pt has not followed up for the same. -S/p paracentesis, 220 mL removed, cytology negative for malignancy -CT chest negative for metastatic disease -CA-125 elevated at 61.6 -Pt will need evaluation by [facility] onc. She stated she would be amendable to f/u in [place] but does not want to travel to [place], this will be arranged upon discharge Discussed findings and concerns for malignancy. She was agreeable to proceed with further workup. All questions and concerns were addressed. Plan is to be discharged to rehab. 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 And hopes to [facility] cancer care locally Microcytic anemia: -Upon admit hemoglobin noted at 3.5, MCV 62.5, platelets 156,000. -S/p 3 units PRBCs since admit - Folate 7.2, vitamin B12 384, iron saturation 3.0%, ferritin 26.3. IV iron has been started. -General surgery consulted, plan was for EGD/colonoscopy today, however pt declined scopes today -Continue to monitor CBC. Transfuse for hgb <7 or if symptomatic
--- NOTE | 2024-09-23 11:02 | CDI ---
Documentation Clarification Form Date: 09/23/24 From: Sury Marie Admit Date: 09/12/2024 11:25:00 PM Patient Name: Stephanie Milner Visit Number: [id number] Discharge Date: 09/19/2024 01:28:00 PM ATTENTION: The Clinical Documentation Specialists (CDI) and [facility] Coding Staff appreciate your assistance in clarifying documentation. Please respond to the clarification below the line at the bottom and electronically sign. The CDI & [facility] Coding staff will review the response and follow-up if needed. Please note: Queries are made part of the Legal Health Record. If you have any questions, please contact the author of this message via ITS. Doctor/Provider: Karla Morrison Protein-calorie malnutrition is documented in the H&P and subsequent progress notes. Additional clarification regarding the severity of malnutrition is requested. History/Risk Factors: Prior admission with abscess to groin Clinical Indicators: Chronic abdominal painas well as weakness. She reports that her abdominal discomfort has gotten progressively worse over the past few days. She states thepainis worse when she eats and long withbloatingandpalpitations. Current BMI: 20.1 Weight 49.895 kg [Cite applicable ASPEN criteria listed below] 09/14 Consult Assessment: She does not meet malnutrition criteria at this time. Underweight. Patient with stage 2 pressure ulcer to coccyx. Treatment: High protein diet Please clarify the severity of malnutrition, if known: [ ] Mild Protein-Calorie Malnutrition [ x [ Protein-calorie Malnutrition Ruled Out [ ] Other condition, please specify [ ] Unable to Determine MTDD
--- NOTE | 2024-09-23 11:15 | CDI ---
Documentation Clarification Form Date: 09/23/24 From: Sury Marie Admit Date: 09/12/2024 11:25:00 PM Patient Name: Stephanie Milner Visit Number: [id number] Discharge Date: 09/19/2024 01:28:00 PM ATTENTION: The Clinical Documentation Specialists (CDI) and [facility] Coding Staff appreciate your assistance in clarifying documentation. Please respond to the clarification below the line at the bottom and electronically sign. The CDI & [facility] Coding staff will review the response and follow-up if needed. Please note: Queries are made part of the Legal Health Record. If you have any questions, please contact the author of this message via ITS. Doctor/Provider: Karla Morrison Your patient has [insert documentation or findings, with date, location]. Based on this information and the findings below, is there an additional diagnosis that is clinically appropriate for this patient? Patient history/risk factors: Prior admission with abscess to groin Clinical Indicators: 09/13 Pressure Injury Assessment: Coccyx-pressure injury Stage 2, Dressing foam w/ bprder 09/14 RD Consult: Patient with stage 2 pressure ulcer to coccyx. Treatment: Dressing foam w/ border. High protein diet Is there an additional diagnosis that is clinically appropriate for this patient? [ ] [CDS puts additional diagnosis here] [ ] [CDS puts additional diagnosis here] [x ] No additional diagnosis/Not clinically significant [ ] Unable to determine [ ] Other, please specify MTDD
== END 2024-09-19 13:28 | DRG 812 ==
LOC: EC 19:00 → 4SSUR 23:25 → 5NMEDONC 23:33 → 3SCARD 09-13 07:47 → 5NMEDONC 09-17 18:21
PROVIDERS: ADMIT Student in an Organized Health Care Education/Training Program; ATTEND Student in an Organized Health Care Education/Training Program
PROC: 0W9G3ZX Drainage of Peritoneal Cavity, Percutaneous Approach, Diagnostic (ICD-10-PCS; principal; 2024-09-13)
PROC: 30233N1 Transfusion of Nonautologous Red Blood Cells into Peripheral Vein, Percutaneous Approach (ICD-10-PCS; 2024-09-13)
DX: D50.9 Iron deficiency anemia, unspecified (principal); D68.9 Coagulation defect, unspecified; J90 Pleural effusion, not elsewhere classified; R18.8 Other ascites; J98.11 Atelectasis; E87.6 Hypokalemia; G89.29 Other chronic pain; N83.9 Noninflammatory disorder of ovary, fallopian tube and broad ligament, unspecified; Z53.20 Procedure and treatment not carried out because of patient's decision for unspecified reasons; Z79.82 Long term (current) use of aspirin
CPT/HCPCS: 36430; 49083; 71260; 74177; 80048; 80053; 81001; 82150; 82272; 82607; 82728; 82746; 82945; 83540; 83550; 83605; 83690; 83880; 84157; 85025; 85027; 85610; 85730; 86304; 86850; 86900; 86901; 86920; 87070; 87075; 87205; 88108; 88305; 89050; 93005; 93306; 96361; 96365; 96366; 96367; 96375; 96376; 99291